=== PATIENT | female | born 1985 | race African-American/Black ===

== ENCOUNTER 2016-06-30 03:26 | Emergency (ER) | payer MEDICAID ==
[~2016-06-30 03:26] MED LIST: CEPH500 PO; PREN0.01 PO
--- NOTE | 2016-06-30 04:29 | PD ---
HPI Chief Complaint Fluid per vagina Date Seen: Jun 30, 2016 Time Seen: 04:24 Travel History International Travel<30 Days: No Contact w/Intl Traveler<30Days: No Known Affected Area: No History of Present Illness HPI Patient is a 31-year-old female who is at 18 weeks 5 days by last menstrual cycle. She sees Radhika De Luna for care and is following up with her again on the sixth. No vaginal bleeding abdominal or pelvic pain. Patient states she had some fluid come out of what she thinks is the vaginal area although she cannot rule out urine earlier tonight 1. Para: 4 : 7 Last Menstrual Period: Jun 30, 2016 (February 19, 2070) History Past Medical History Medical History: Denies Significant Hx Obstetric History Obstetric History Spontaneous vaginal delivery 4 Past Surgical History Surgical History: No Previous Surgery Family History Family History: Negative Social History Alcohol Use: No Tobacco Use: Yes Substance Abuse: No Allergies-Medications (Allergen,Severity, Reaction): Coded Allergies: No Known Allergies (Verified , 11/20/15) Home Meds Active Scripts Multivit/Min/Fol Ac/Iron/Pren ( Vit ( Plus)) Tab1 Tab PO DAILY #30 TAB Prov:Johanne Moy MD 11/20/15 Cephalexin Monohydrate (Keflex 500 mg Cap)500 Mg [id number] Mg PO TID 7 Days Prov:Johanne Moy MD 11/20/15 Review of Systems Except as stated in HPI: all other systems reviewed are Neg Physical Exam Narrative GENERAL: Well-nourished, well-developed patient. SKIN: Warm and dry. HEAD: Normocephalic and atraumatic. EYES: No scleral icterus. No injection or drainage. ENT: No nasal drainage noted. Mucous membranes pink. Airway patent. NECK: Supple, trachea midline. No JVD. CARDIOVASCULAR: Regular rate and rhythm without murmurs, gallops, or rubs. RESPIRATORY: Breath sounds equal bilaterally. No accessory muscle use. BREASTS: Bilateral exam showed no masses , no retractions, no nipple discharge. ABDOMEN/GI: Abdomen soft, non-tender, bowel sounds present, no rebound, no guarding Gravid to [-18] weeks size Fundal Height: [-] GENITOURINARY: External Genitalia: intact and normal in appearance BUS glands: [-Normal] no fluid noted no gross rupture Cervix: [-] Dilatation: [-] Effacement: [-] Station: [-] Presentation: [-] Membranes: Intact, amnisure negative Uterine Contractions: [Absent-] FHT's: Category: [-] heart rate 152 by Doppler Baseline: [-] Reactive: [-] Variability: [-] Decels: [-] EXTREMITIES: No cyanosis or edema. BACK: Nontender without obvious deformity. No CVA tenderness. NEUROLOGICAL: Awake and alert. Motor and sensory grossly within normal limits. Five out of 5 muscle strength in all muscle groups. Normal speech. Data Data Vital Signs Reviewed: Yes MDM Plan Intact amniotic membranes with negative amnisure and no gross rupture of membrane rupture on examination Follow up with Radhika De Luna as scheduled on the sixth Diagnosis Diagnosis: Primary Impression: Intact amniotic membranes during in second trimester Additional Impression: 18 weeks gestation of Disposition: 01 DISCHARGE HOME Mely Landeros MD Jun 30, 2016 04:29
== END 2016-06-30 07:00 | disposition home or self-care (01) ==
LOC: HOBED 03:26
DX: O26.892 Other specified pregnancy related conditions, second trimester (principal)
CPT/HCPCS: 84112; 99284

== ENCOUNTER 2016-09-18 18:17 | Emergency (ER) | payer MEDICAID ==
[~2016-09-18] VITALS: Ht 157.5 cm; Wt 89.0 kg
[2016-09-18 18:18] VITALS: BP 125/76; PULSE 102; RESP 16; TEMP 99; O2SAT 100
== END 2016-09-18 21:50 | disposition left against medical advice (07) ==
LOC: NED 18:17
DX: R09.89 Other specified symptoms and signs involving the circulatory and respiratory systems (principal)
CPT/HCPCS: 99281

== ENCOUNTER 2016-10-06 03:50 | Emergency (ER) | payer MEDICAID ==
[2016-10-06 05:05] LABS: BACTERIA, URINE RARE /hpf; BLOOD, URINE NEG (NEG); COMMENT (UR) CULT NOT INDICATED; CULTURE IF INDICATED CULT NOT INDICATED; GLUCOSE,URINE NEG (NEG); KETONE, URINE NEG (NEG); MUCUS URINE FEW /lpf (OCC); NITRITE,URINE NEG (NEG); SQUAMOUS EPITHELIAL CELL URINE 10 /hpf (0-5); URINE COLOR YELLOW (YELLW/STRAW)
--- NOTE | 2016-10-06 06:11 | PD ---
HPI Chief Complaint Urinary frequency some dysuria and pelvic pressure Date Seen: Oct 06, 2016 Travel History International Travel<30 Days: No Contact w/Intl Traveler<30Days: No Known Affected Area: No History of Present Illness HPI 31-year-old black female now at 32 weeks presents combining of urinary discharge frequency some discomfort with urination ,pelvic pressure. Denies bleeding or leakage of fluid per vagina, heart rate tracing is reactive and there are no contractions seen Para: 4 : 8 History Obstetric History Obstetric History 4 vaginal deliveries 3 early losses Social History Alcohol Use: No Tobacco Use: No Substance Abuse: No Allergies-Medications (Allergen,Severity, Reaction): Coded Allergies: No Known Allergies (Verified , 11/20/15) Home Meds Active Scripts Multivit/Min/Fol Ac/Iron/Pren ( Vit ( Plus)) Tab1 Tab PO DAILY #30 TAB Prov:Johanne Moy MD 11/20/15 Cephalexin Monohydrate (Keflex 500 mg Cap)500 Mg [id number] Mg PO TID 7 Days Prov:Johanne Moy MD 11/20/15 Review of Systems General / Constitutional: No: Fever, Weight Gain, Chills, Other Eyes: No: Diploplia, Blurred Vision, Visual changes, Pain, Photophobia HENT: No: Headaches, Vertigo, Lightheadedness Cardiovascular: No: Irregular Rhythm, Chest Pain or Discomfort, Palpitations, Tachycardia, Syncope, Varicosities, Edema, Cyanosis Respiratory: No: Cough, Short of Breath, Other Gastrointestinal: No: Nausea, Vomiting, Diarrhea Genitourinary: Urgency, Frequency, Pelvic Pain, No: Decreased Urinary Output, Oliguria Musculoskeletal: No: Limited ROM, Weakness, Cramping, Edema, Pain Skin: No Rash, No Itching, No Dryness, No Lumps, No Change in Pigmentation, No Change in Nails, No Alopecia, No Lesions Neurologic: No: Weakness, Dizziness, Syncope, Focal Abnormalities, Coordination Problem, Headache, Slurred Speech, Seizures Psychiatric: No: Depression, Suicidal Ideations, Homicidal Ideation Endocrine: No: Heat Intolerance, Cold Intolerance, Polydipsia, Polyuria, Other Physical Exam Narrative GENERAL: Well-nourished, well-developed patient. SKIN: Warm and dry. HEAD: Normocephalic and atraumatic. EYES: No scleral icterus. No injection or drainage. ENT: No nasal drainage noted. Mucous membranes pink. Airway patent. NECK: Supple, trachea midline. No JVD. CARDIOVASCULAR: Regular rate and rhythm without murmurs, gallops, or rubs. RESPIRATORY: Breath sounds equal bilaterally. No accessory muscle use. BREASTS: Bilateral exam showed no masses , no retractions, no nipple discharge. ABDOMEN/GI: Abdomen soft, non-tender, bowel sounds present, no rebound, no guarding Gravid to [-33] weeks size Fundal Height: [-33] GENITOURINARY: External Genitalia: intact and normal in appearance BUS glands: [-] Cervix: [-] Dilatation: [0-] Effacement: [-0] Station: [-3] Presentation: [vtx-] Membranes: [intact ] Uterine Contractions: [none-] FHT's: Category: [1-] Baseline: [-144] Reactive: [-yes] Variability: [mod-] Decels: [0-] EXTREMITIES: No cyanosis or edema. BACK: Nontender without obvious deformity. No CVA tenderness. NEUROLOGICAL: Awake and alert. Motor and sensory grossly within normal limits. Five out of 5 muscle strength in all muscle groups. Normal speech. Data Data Orders Urinalysis - C+S If Indicated (10/06/16 03:57) Labs Laboratory Tests Test 10/06/16 04:08 Urine Color YELLOW Urine Turbidity HAZY Urine pH 7.0 Urine Specific [place] 1.026 Urine Protein 30 Urine Glucose (UA) NEG Urine Ketones NEG Urine Occult Blood NEG Urine Nitrite NEG Urine Bilirubin NEG Urine Urobilinogen 8.0 Urine Leukocyte Esterase SMALL Urine RBC 1 Urine WBC 3 Urine Squamous Epithelial 10 Cells Urine Amorphous Sediment SMALL Urine Bacteria RARE Urine Mucus FEW Microscopic Urinalysis Comment CULT NOT INDICATED MDM Interpretation(s) This patient is a 31-year-old black female 32 weeks complaining of urinary frequency pelvic pressure, no vaginal bleeding or leakage of fluid. heart rate tracing is reactive and she is not rach. Cervix is closed long and high. Urinalysis is negative for infection Plan Plan for the patient to orally hydrate herself at home and flushed the bladder, she can take Tylenol as needed. Heating pad on her lower abdomen or hot bath. Bedrest may help some of pressure off she's feeling. Diagnosis Diagnosis: Primary Impression: Feeling pelvic pressure in in third trimester, antepartum Disposition: 01 DISCHARGE HOME Condition: Stable Patient Instructions: General Instructions, Early Labor Signs (ED), Movement (ED), Urinary Tract Infection in (ED) Departure Forms: Tests/Procedures Cade Thomas II, MD Oct 06, 2016 06:11
== END 2016-10-06 06:26 | disposition home or self-care (01) ==
LOC: HOBED 03:50
DX: O26.93 Pregnancy related conditions, unspecified, third trimester (principal); R10.2 Pelvic and perineal pain; Z3A.32 32 weeks gestation of pregnancy
CPT/HCPCS: 81001; 99282

== ENCOUNTER 2016-11-05 19:48 | Inpatient (IN) | payer MEDICAID ==
[2016-11-05 21:33] LABS: AUTOMATED NEUTROPHIL # 5.6 TH/MM3 (1.8-7.7); BASOPHIL % 0.3 % (0.0-2.0); EOSINOPHIL % 0.3 % (0.0-4.0); HEMATOCRIT 29.3 % (35.0-46.0); HEMO FLAGS DIFF FINAL; LYMPH % 24.4 % (9.0-44.0); LYMPHOCYTE # 1.9 TH/MM3 (1.0-4.8); MEAN CELL VOLUME 85.1 FL (80.0-100.0); MEAN CORPUSCULAR HEMOGLOBIN 27.7 PG (27.0-34.0); MEAN CORPUSCULAR HGB CONC 32.6 % (32.0-36.0); MONO % 4.2 % (0.0-8.0); NEUT % 70.8 % (16.0-70.0); PLATELET COUNT 233 TH/MM3 (150-450); RED BLOOD COUNT 3.45 MIL/MM3 (4.00-5.30); RED CELL DISTRIBUTION WIDTH 14.1 % (11.6-17.2); WHITE BLOOD COUNT 7.9 TH/MM3 (4.0-11.0)
[2016-11-05 21:36] LABS: BACTERIA, URINE RARE /hpf; BLOOD, URINE NEG (NEG); COMMENT (UR) CULT NOT INDICATED; CULTURE IF INDICATED CULT NOT INDICATED; GLUCOSE,URINE NEG (NEG); KETONE, URINE NEG (NEG); MUCUS URINE FEW /lpf (OCC); NITRITE,URINE NEG (NEG); SQUAMOUS EPITHELIAL CELL URINE 4 /hpf (0-5); URINE COLOR YELLOW (YELLW/STRAW)
[2016-11-05 22:00] LABS: ALKALINE PHOSPHATASE 160 U/L (45-117); ALT (GPT) 15 U/L (10-53); ANION GAP 11 MEQ/L (5-15); AST (GOT) 23 U/L (15-37); BICARBONATE 24.7 MEQ/L (21.0-32.0); BLOOD UREA NITROGEN 6 MG/DL (7-18); CHLORIDE 102 MEQ/L (98-107); GLOMERULAR FILTRATION RATE 106 ML/MIN (>89); SODIUM (NA) 138 MEQ/L (136-145); TOTAL BILIRUBIN ADULT 0.7 MG/DL (0.2-1.0); URIC ACID 7.1 MG/DL (2.6-6.0)
--- NOTE | 2016-11-05 22:15 | HHI.HP ---
HPI Chief Complaint This patient complains of high blood pressure Date Seen: Nov 05, 2016 Travel History International Travel<30 Days: No Contact w/Intl Traveler<30Days: No Known Affected Area: No History of Present Illness HPI Patient is 31-year-old black female A3 who 37 weeks gestation the patient Radhika Salazar presents from her office for evaluation of hypertension. 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 heart rate tracing is reactive she's not rach on a regular basis she denies leakage of fluid or bleeding or pain. She does complain of a headache at times, no visual changes Para: 4 : 8 History Obstetric History Obstetric History 4 vaginal deliveries 3 early losses Social History Alcohol Use: No Tobacco Use: No Substance Abuse: No Allergies-Medications (Allergen,Severity, Reaction): Coded Allergies: No Known Allergies (Verified , 11/20/15) Home Meds Active Scripts Multivit/Min/Fol Ac/Iron/Pren ( Vit ( Plus)) Tab1 Tab PO DAILY #30 TAB Prov:Johanne Moy MD 11/20/15 Cephalexin Monohydrate (Keflex 500 mg Cap)500 Mg [id number] Mg PO TID 7 Days Prov:Johanne Moy MD 11/20/15 Review of Systems General / Constitutional: No: Fever, Weight Gain, Chills, Other Eyes: No: Diploplia, Blurred Vision, Visual changes, Pain, Photophobia HENT: Headaches, No: Vertigo, Lightheadedness Cardiovascular: No: Irregular Rhythm, Chest Pain or Discomfort, Palpitations, Tachycardia, Syncope, Varicosities, Edema, Cyanosis Respiratory: No: Cough, Short of Breath, Other Gastrointestinal: No: Nausea, Vomiting, Diarrhea Genitourinary: No: Decreased Urinary Output, Oliguria Musculoskeletal: No: Limited ROM, Weakness, Cramping, Edema, Pain Skin: No Rash, No Itching, No Dryness, No Lumps, No Change in Pigmentation, No Change in Nails, No Alopecia, No Lesions Neurologic: No: Weakness, Dizziness, Syncope, Focal Abnormalities, Coordination Problem, Headache, Slurred Speech, Seizures Psychiatric: No: Depression, Suicidal Ideations, Homicidal Ideation Endocrine: No: Heat Intolerance, Cold Intolerance, Polydipsia, Polyuria, Other Physical Exam Narrative GENERAL: Well-nourished, well-developed patient. SKIN: Warm and dry. HEAD: Normocephalic and atraumatic. EYES: No scleral icterus. No injection or drainage. ENT: No nasal drainage noted. Mucous membranes pink. Airway patent. NECK: Supple, trachea midline. No JVD. CARDIOVASCULAR: Regular rate and rhythm without murmurs, gallops, or rubs. RESPIRATORY: Breath sounds equal bilaterally. No accessory muscle use. BREASTS: Bilateral exam showed no masses , no retractions, no nipple discharge. ABDOMEN/GI: Abdomen soft, non-tender, bowel sounds present, no rebound, no guarding Gravid to [36-] weeks size Fundal Height: [-36] GENITOURINARY: External Genitalia: intact and normal in appearance BUS glands: [-] Cervix: [-] Dilatation: [1-] Effacement: [50-] Station: [-3] very high Presentation: [-vtx] Membranes: [intact ] Uterine Contractions: [Occasional-] FHT's: Category: [-1] Baseline: [-133] Reactive: [yes-] Variability: [-mod] Decels: [0-] EXTREMITIES: No cyanosis or edema. BACK: Nontender without obvious deformity. No CVA tenderness. NEUROLOGICAL: Awake and alert. Motor and sensory grossly within normal limits. Five out of 5 muscle strength in all muscle groups. Normal speech. Data Data Orders Complete Blood Count With Diff (11/05/16 20:35) Comprehensive Metabolic Panel (11/05/16 20:35) Uric Acid (11/05/16 20:35) Urinalysis - C+S If Indicated (11/05/16 20:43) Labs Laboratory Tests Test 11/05/16 11/05/16 20:15 20:50 Urine Color YELLOW Urine Turbidity CLEAR Urine pH 6.0 Urine Specific [place] 1.026 Urine Protein 30 Urine Glucose (UA) NEG Urine Ketones NEG Urine Occult Blood NEG Urine Nitrite NEG Urine Bilirubin NEG Urine Urobilinogen 4.0 Urine Leukocyte Esterase NEG Urine RBC LESS THAN 1 Urine WBC 2 Urine Squamous Epithelial 4 Cells Urine Bacteria RARE Urine Mucus FEW Microscopic Urinalysis Comment CULT NOT INDICATED White Blood Count 7.9 Red Blood Count 3.45 Hemoglobin 9.6 Hematocrit 29.3 Mean Corpuscular Volume 85.1 Mean Corpuscular Hemoglobin 27.7 Mean Corpuscular Hemoglobin 32.6 Concent Red Cell Distribution Width 14.1 Platelet Count 233 Mean Platelet Volume 9.0 Neutrophils (%) (Auto) 70.8 Lymphocytes (%) (Auto) 24.4 Monocytes (%) (Auto) 4.2 Eosinophils (%) (Auto) 0.3 Basophils (%) (Auto) 0.3 Neutrophils # (Auto) 5.6 Lymphocytes # (Auto) 1.9 Monocytes # (Auto) 0.3 Eosinophils # (Auto) 0.0 Basophils # (Auto) 0.0 CBC Comment DIFF FINAL Differential Comment Assessment/Plan Assessment and Plan This patient is a 37 week intrauterine with elevated blood pressures 140 over 90s and 1+ proteinuria, heart rate tracing is reactive and she is rach minimally. Cervix is 1 cm 50% very posterior and high vertex presentation. The hypertensive lab normal so far Plan to admit the hospital was for observation and 24-hour urine protein, bedrest. Her blood pressures continue to be elevated after bedrest consider labor induction Cade Thomas II, MD Nov 05, 2016 22:15
[2016-11-05] MEDS ORDERED: LACTATED RINGER'S 1000 ML INJ 1,000 ML IV SCH (22:17)
[2016-11-05 22:21] LABS: POTASSIUM 2.9 MEQ/L (3.5-5.1)
[2016-11-05] MEDS ORDERED: POTASSIUM PHOSPHATE INJ 30 MMOL in SODIUM CHLOR 0.9% 250 ML INJ 250 ML IV ONE (22:30)
[2016-11-05] MEDS ORDERED: ZOLPIDEM TARTRATE 5 MG TAB PO PRN (22:30)
[2016-11-05] MEDS ORDERED: SODIUM CHLORIDE 0.9% FLUSH 5 ML FLUSH IV PRN (22:30)
[2016-11-05] MEDS ORDERED: DOCUSATE SODIUM 100 MG CAP PO PRN (22:30)
[2016-11-05] MEDS ORDERED: CALCIUM GLUCONATE 10% 1 GM/10 ML VIAL IV PUSH PRN (22:30)
[2016-11-05] MEDS ORDERED: ONDANSETRON HCL 4 MG/2 ML VIAL IV PRN (22:30)
[2016-11-05] MEDS ORDERED: hydrALAZINE HCL 20 MG/ML VIAL IV PUSH PRN (22:30)
[2016-11-05] MEDS ORDERED: POTASSIUM CHLOR 20 MEQ PREMIX 100 ML IV ONE (23:00)
[2016-11-06] VITALS (108 sets, daily range): BP systolic 120–159; BP diastolic 73–103; PULSE 58–92; RESP 18; TEMP 97.8–98.2; O2SAT 98–100
[2016-11-06] MEDS ORDERED: SODIUM CHLORIDE 0.9% FLUSH 5 ML FLUSH IV SCH ×2 (09:00→21:00)
--- NOTE | 2016-11-06 11:05 | HHI.PR ---
BREAKER TENDER Note Note Discussed continued elevation in blood pressure with this patient. BP are consistently 140-150/90-100 with proteinuria on dip. At 37 weeks I have recommended induction of labor due to Gestational Hypertension with proteinuria , no severe features are noted. Patient states that she had a GBS performed but it was only a swab of the area "between the vagina and rectum" no entry to the vagina or rectum was done, this was GBS negative. Patient has had positive GBS cultures in 3 prior pregnancies. 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 Patient will be transferred to labor for cervical ripening and induction of labor. Mely Landeros MD Nov 06, 2016 11:05
[2016-11-06] MEDS ORDERED: LACTATED RINGER'S 1000 ML INJ 1,000 ML IV PRN (11:11)
[2016-11-06] MEDS ORDERED: LACTATED RINGER'S 1000 ML INJ 1,000 ML IV SCH (11:11)
[2016-11-06] MEDS ORDERED: SODIUM CHLORIDE 0.9% FLUSH 5 ML FLUSH IV PRN (11:15)
[2016-11-06] MEDS ORDERED: LIDOCAINE HCL 1% 50 ML VIAL INFIL PRN (11:15)
[2016-11-06] MEDS ORDERED: LIDOCAINE HCL 1% 50 ML VIAL I-DERMAL PRN (11:15)
[2016-11-06] MEDS ORDERED: CITRIC ACID-SODIUM CITRATE LIQ 30 ML UDC PO SCH (11:15)
[2016-11-06] MEDS ORDERED: MINERAL OIL 10 ML VIAL TOPICAL PRN (11:15)
[2016-11-06] MEDS ORDERED: CALCIUM GLUCONATE 10% 1 GM/10 ML VIAL IV PUSH PRN (11:15)
[2016-11-06] MEDS ORDERED: OXYTOCIN 30 UNITS-500ML PREMIX 500 ML IV ONE (11:15)
[2016-11-06] MEDS ORDERED: PENICILLIN G POTASSIUM INJ 5,000,000 UNITS in SODIUM CHLORIDE 0.9% INJ 100 ML IV ONE (11:15)
[2016-11-06] MEDS ORDERED: MAGNESIUM SULFATE 4 GM PREMIX 100 ML IV ONE (11:15)
[2016-11-06] MEDS ORDERED: SODIUM CHLORID 0.9% 500 ML INJ 500 ML IV PRN (11:15)
--- NOTE | 2016-11-06 11:23 | PD.OB.ANTE ---
Subjective Interval History Patient seen and examined this morning. Denies any new complaints. Is having some lower pelvic pain. Denies any headaches, RUQ pain, changes in vision, lower extremity swelling. Denies any chest pain, SOB, calf pain. Antepartum ROS: Reports: movement normal, Denies: New complaints, Loss of fluid, Vaginal bleeding, Contractions, Other Objective Lab & Micro Results Test 11/05/16 11/05/16 20:15 20:50 Urine Color YELLOW Urine Turbidity CLEAR Urine pH 6.0 Urine Specific [place] 1.026 Urine Protein 30 mg/dL Urine Glucose (UA) NEG mg/dL Urine Ketones NEG mg/dL Urine Occult Blood NEG Urine Nitrite NEG Urine Bilirubin NEG Urine Urobilinogen 4.0 MG/DL Urine Leukocyte Esterase NEG Urine RBC LESS THAN 1 /hpf Urine WBC 2 /hpf Urine Squamous Epithelial 4 /hpf Cells Urine Bacteria RARE /hpf Urine Mucus FEW /lpf Microscopic Urinalysis Comment CULT NOT INDICATED White Blood Count 7.9 TH/MM3 Red Blood Count 3.45 MIL/MM3 Hemoglobin 9.6 GM/DL Hematocrit 29.3 % Mean Corpuscular Volume 85.1 FL Mean Corpuscular Hemoglobin 27.7 PG Mean Corpuscular Hemoglobin 32.6 % Concent Red Cell Distribution Width 14.1 % Platelet Count 233 TH/MM3 Mean Platelet Volume 9.0 FL Neutrophils (%) (Auto) 70.8 % Lymphocytes (%) (Auto) 24.4 % Monocytes (%) (Auto) 4.2 % Eosinophils (%) (Auto) 0.3 % Basophils (%) (Auto) 0.3 % Neutrophils # (Auto) 5.6 TH/MM3 Lymphocytes # (Auto) 1.9 TH/MM3 Monocytes # (Auto) 0.3 TH/MM3 Eosinophils # (Auto) 0.0 TH/MM3 Basophils # (Auto) 0.0 TH/MM3 CBC Comment DIFF FINAL Differential Comment Sodium Level 138 MEQ/L Potassium Level 2.9 MEQ/L Chloride Level 102 MEQ/L Carbon Dioxide Level 24.7 MEQ/L Anion Gap 11 MEQ/L Blood Urea Nitrogen 6 MG/DL Creatinine 0.76 MG/DL Estimat Glomerular Filtration 106 ML/MIN Rate Random Glucose 94 MG/DL Uric Acid 7.1 MG/DL Calcium Level 9.0 MG/DL Total Bilirubin 0.7 MG/DL Aspartate Amino Transf 23 U/L (AST/SGOT) Alanine Aminotransferase 15 U/L (ALT/SGPT) Alkaline Phosphatase 160 U/L Total Protein 6.7 GM/DL Albumin 2.7 GM/DL Physical Exam GENERAL: Well-nourished, well-developed patient. CARDIOVASCULAR: Regular rate and rhythm without murmurs, gallops, or rubs. RESPIRATORY: Breath sounds equal bilaterally. No accessory muscle use. ABDOMEN/GI: Abdomen soft, non-tender. Gravid to 37 weeks. GENITOURINARY: FHT's: Category: 1 Baseline: 130 Reactive: yes Variability: moderate Decels: none EXTREMITIES: No cyanosis or edema, non-tender, without signs of DVT. Assessment and Plan Problem List: (1) 37 weeks gestation of Status: Acute (2) Elevated blood pressure affecting in third trimester, antepartum Status: Acute Assessment and Plan This patient is a 37 week intrauterine with elevated blood pressures 140 over 90s and 1+ proteinuria, heart rate tracing is reactive and she is rach minimally. Elevated BP up to 162/95 overnight. GBS negative (inadequately sampled) -BPs continued to be elevated, will induce labor and cervical ripening with cytotec. -Admit to L&D -24 hour urine pending -Continuous FHT -GBS treatment with Salvador Degroot MD R1 Nov 06, 2016 11:23
[2016-11-06] MEDS ORDERED: SODIUM CHLOR 0.9% 1000 ML INJ 1,000 ML IV PRN (11:31)
[2016-11-06] MEDS: MAGNESIUM SULFATE 40 GM PREMIX 1,000 ML IV SCH (12:16)
[2016-11-06] MEDS ORDERED: MISOPROSTOL 25 MCG SUPP VAGINAL ONE (13:30)
[2016-11-06 13:40] LABS: AUTOMATED NEUTROPHIL # 3.9 TH/MM3 (1.8-7.7); BASOPHIL % 0.3 % (0.0-2.0); EOSINOPHIL % 0.3 % (0.0-4.0); HEMATOCRIT 27.3 % (35.0-46.0); HEMO FLAGS DIFF FINAL; LYMPH % 29.2 % (9.0-44.0); LYMPHOCYTE # 1.8 TH/MM3 (1.0-4.8); MEAN CELL VOLUME 85.6 FL (80.0-100.0); MEAN CORPUSCULAR HEMOGLOBIN 28.4 PG (27.0-34.0); MEAN CORPUSCULAR HGB CONC 33.2 % (32.0-36.0); MONO % 6.1 % (0.0-8.0); NEUT % 64.1 % (16.0-70.0); PLATELET COUNT 241 TH/MM3 (150-450); RED BLOOD COUNT 3.19 MIL/MM3 (4.00-5.30); RED CELL DISTRIBUTION WIDTH 14.2 % (11.6-17.2); WHITE BLOOD COUNT 6.1 TH/MM3 (4.0-11.0)
[2016-11-06] MEDS ORDERED: LABETALOL HCL 100 MG/20 ML VIAL ONE (13:54)
[2016-11-06] MEDS: PENICILLIN G POTASSIUM INJ 2,500,000 UNITS in SODIUM CHLORIDE 0.9% INJ 100 ML IV SCH ×3 (15:00→23:00)
[2016-11-06] MEDS: LACTATED RINGER'S 1000 ML INJ 1,000 ML IV SCH (17:03)
[2016-11-06] MEDS: MISOPROSTOL 25 MCG SUPP VAGINAL PRN ×2 (17:31→21:46)
[2016-11-07] VITALS (154 sets, daily range): BP systolic 120–163; BP diastolic 62–109; PULSE 66–116; RESP 16–18; TEMP 97.4–98.3
[2016-11-07] MEDS: ACETAMINOPHEN 325 MG TAB PO PRN ×2 (00:45→10:11)
[2016-11-07] MEDS: LACTATED RINGER'S 1000 ML INJ 1,000 ML IV SCH ×2 (00:46→06:23)
[2016-11-07] MEDS ORDERED: OXYTOCIN 30 UNITS/NS 500ML PREMIX IV SCH (02:30)
[2016-11-07] MEDS: PENICILLIN G POTASSIUM INJ 2,500,000 UNITS in SODIUM CHLORIDE 0.9% INJ 100 ML IV SCH ×3 (04:24→14:22)
[2016-11-07] MEDS: MAGNESIUM SULFATE 40 GM PREMIX 1,000 ML IV SCH (06:25)
[2016-11-07 10:30] LABS: RAPID PLASMA REAGIN SCREEN NON-REACTIVE (NON-REACTVE)
[2016-11-07] MEDS ORDERED: fentaNYL 2MCG-BUPIV 0.125% INJ 100 ML ONE (10:54)
[2016-11-07] MEDS ORDERED: ePHEDrine/NS 25 MG/5 ML SYR ONE (10:54)
[2016-11-07] MEDS ORDERED: BUPIVACAINE HCL PF 0.25% 10 ML VIAL ONE (11:12)
--- NOTE | 2016-11-07 11:14 | PD.LABORPN ---
Subjective Subjective 31-year-old A3 at 37/2 weeks gestation admitted for induction of labor due to preeclampsia. She denies headaches, changes in vision. She has no physical concerns at this time. Objective Vital Signs Vital Signs Date Time Temp Pulse Resp B/P Pulse Ox O2 Delivery O2 Flow Rate FiO2 11/07/16 11:05 97.6 11/07/16 11:01 18 11/07/16 11:00 81 11/07/16 11:00 84 148/89 11/07/16 10:25 73 11/07/16 10:20 82 11/07/16 10:15 86 11/07/16 10:15 18 11/07/16 10:10 77 11/07/16 10:05 74 11/07/16 10:00 76 141/84 11/07/16 10:00 74 11/07/16 09:55 73 11/07/16 09:50 74 11/07/16 09:45 76 11/07/16 09:11 18 11/07/16 09:10 77 11/07/16 09:05 82 11/07/16 09:01 83 128/86 11/07/16 09:00 73 11/07/16 08:05 80 11/07/16 08:01 81 18 143/97 11/07/16 08:00 74 11/07/16 07:55 74 11/07/16 07:50 74 11/07/16 07:45 74 11/07/16 07:07 75 153/96 11/07/16 07:05 74 11/07/16 07:02 76 11/07/16 07:01 79 11/07/16 07:00 77 11/07/16 06:59 18 11/07/16 06:59 97.8 11/07/16 06:55 73 11/07/16 06:50 77 11/07/16 06:45 83 11/07/16 06:40 75 11/07/16 06:35 75 11/07/16 06:30 76 11/07/16 06:25 75 11/07/16 06:20 73 11/07/16 06:15 73 11/07/16 06:10 76 11/07/16 06:05 76 11/07/16 06:00 73 11/07/16 06:00 151/97 11/07/16 06:00 78 11/07/16 06:00 18 11/07/16 05:55 83 11/07/16 05:50 79 11/07/16 05:40 78 11/07/16 05:35 80 11/07/16 05:20 76 11/07/16 05:10 74 11/07/16 05:00 76 153/93 11/07/16 04:59 97.7 11/07/16 04:55 73 11/07/16 04:54 18 11/07/16 04:50 73 11/07/16 04:45 74 11/07/16 04:35 78 11/07/16 04:25 77 11/07/16 04:10 66 11/07/16 04:04 77 11/07/16 04:01 153/96 11/07/16 03:55 68 11/07/16 03:53 18 11/07/16 03:50 69 11/07/16 03:25 78 Objective Pelvic Exam: Cervix: midposition Dilatation: 3 cm Effacement: 80 Station: -2 Presentation: vertex Membranes: AROM by Dr. Krishnamurthy @[id number] Uterine Contractions: Regular every 2-3 mins FHT's: Category: 1 Baseline: 120 Reactive: Y Variability: moderate Decels: N Assessment/Plan Problem List: (1) 37 weeks gestation of (2) Elevated blood pressure affecting in third trimester, antepartum Assessment and Plan 31-year-old A3 at 37/2 weeks gestation admitted for induction of labor #1 IUP Category 1 tracing, reassuring - Continuous monitoring #2 preeclampsia Blood pressures less than 150/90 - Vital signs per protocol - Receiving magnesium sulfate - Status post Cytotec 2 for cervical ripening - Currently on Pitocin with regular contractions - Status post AROM, IUPC placement for monitoring Efrain Krishnamurthy MD R1 Nov 07, 2016 11:14
--- NOTE | 2016-11-07 15:13 | PD.OB.DELI ---
Delivery Date: Nov 07, 2016 Anesthesia: Epidural Episiotomy: None Vaginal Delivery: Normal Presentation: Occiput anterior Nuchal Cord: x1 Delayed cord clamping (45 sec): Yes : Female One Minute : 8 Five Minute : 9 Weight: 2275 g Placenta: Spontaneous delivery Laceration: No lacerations Additional Information Delivered by Dr. Krishnamurthy Supervised by Dr. Ivory (Efrain Krishnamurthy MD R1) Attestation I was present and directly supervised the entire delivery procedure. During placenta delivery, cord was thin and small and avulsed with minimal traction. Placenta began to delivery spontaneously with fundal massage. Speculum was placed in vagina for visualization and cervix manipulated with ring forceps. Edge of placenta could be visualized coming through os. Instruments were removed from the vagina and edge of placenta was grasped manually within cervical canal, and placenta was teased out intact. The placenta appeared small for gestational age. /delivery complicated by preeclampsia/SGA. (Yuval Ivory MD) Efrain Krishnamurthy MD R1 Nov 07, 2016 15:13 Yuval Ivory MD Nov 07, 2016 15:21
[2016-11-07] MEDS ORDERED: WITCH HAZEL 50%/GLYCERIN 12.5% 40 PAD JAR TOPICAL PRN (15:30)
[2016-11-07] MEDS ORDERED: ACETAMINOPHEN 325 MG TAB PO PRN (15:30)
[2016-11-07] MEDS ORDERED: ZOLPIDEM TARTRATE 5 MG TAB PO PRN (15:30)
[2016-11-07] MEDS ORDERED: ALUMINUM/MAGNESIUM/SIMETH 30 ML CUP PO PRN (15:30)
[2016-11-07] MEDS ORDERED: IBUPROFEN 600 MG TAB PO PRN (15:30)
[2016-11-07] MEDS ORDERED: DOCUSATE SODIUM 50 MG/SENNA 8.6 MG TAB PO PRN (15:30)
[2016-11-07] MEDS ORDERED: BENZOCAINE 20% TOPICAL SPRAY 60 ML CAN TOPICAL PRN (15:30)
[2016-11-07] MEDS ORDERED: SODIUM CHLORIDE 0.9% FLUSH 10 ML FLUSH IV FLUSH PRN (15:30)
[2016-11-07] MEDS ORDERED: ONDANSETRON ODT 4 MG TAB PO PRN (15:30)
[2016-11-07] MEDS ORDERED: DIPHTH/TETANUS/ACEL PERTUSSIS (BOOSTER) 0.5 ML VIAL/PFS IM ONE (16:00)
[2016-11-07] MEDS ORDERED: MEASLES, MUMPS, RUBELLA VACCINE 0.5 ML VIAL SQ ONE (16:00)
[2016-11-07] MEDS ORDERED: DO NOT ADMINISTER ANTICOAGULANTS PRN (16:30)
[2016-11-07] MEDS ORDERED: fentaNYL 2MCG-BUPIV 0.125% 100 ML EPIDURAL SCH (16:30)
[2016-11-07] MEDS ORDERED: OXYTOCIN 30 UNITS-500ML PREMIX 500 ML ONE (16:30)
[2016-11-07] MEDS ORDERED: ePHEDrine/NS 25 MG/5 ML SYR IV PRN (16:30)
[2016-11-07] MEDS ORDERED: MISOPROSTOL 200 MCG TAB ONE (16:30)
[2016-11-07] MEDS ORDERED: NO SYSTEM NARCOTICS PRN (16:30)
[2016-11-07] MEDS ORDERED: MISOPROSTOL 200 MCG TAB RECTAL ONE (16:45)
[2016-11-07] MEDS ORDERED: OXYTOCIN 30 UNITS-500ML PREMIX 500 ML IV SCH (16:45)
--- NOTE | 2016-11-07 17:05 | HHI.OB ---
Subjective Post Operative Day: 0 Remarks Called to see patient secondary to excessive vaginal bleeding approx 400 cc clot noted on perineal pad and active bleeding noted. Pt alert and oriented, no c/o dizziness/weakness. On exam, uterus firm. Approximately 600 cc of additional clot expelled with BME. Second bag of pitocin hung. misoprostol 800 mcg placed in rectum. Minimal vaginal bleeding noted after exam/intervention complete. Will observe closely and check hgb in 1 hour. Objective Vitals/I&O Vital Signs Date Time Temp Pulse Resp B/P Pulse Ox O2 Delivery O2 Flow Rate FiO2 11/07/16 16:45 92 144/96 11/07/16 16:44 18 11/07/16 16:31 116 163/62 11/07/16 16:21 18 11/07/16 16:15 83 156/102 11/07/16 16:03 80 151/93 11/07/16 15:55 18 11/07/16 15:49 85 157/99 11/07/16 15:39 18 11/07/16 15:31 95 149/91 11/07/16 15:21 96 144/87 11/07/16 15:19 97.6 11/07/16 15:17 18 11/07/16 15:01 87 144/91 11/07/16 14:54 88 136/94 11/07/16 14:30 103 155/109 11/07/16 14:10 18 11/07/16 14:00 75 135/90 11/07/16 13:30 72 125/73 11/07/16 13:22 97.4 18 11/07/16 13:00 71 125/79 11/07/16 12:36 83 133/77 11/07/16 12:35 77 11/07/16 12:31 83 132/78 11/07/16 12:30 77 11/07/16 12:28 79 134/87 11/07/16 12:25 87 127/71 11/07/16 12:25 79 11/07/16 12:20 88 129/83 11/07/16 12:20 97 11/07/16 12:15 95 11/07/16 12:15 90 135/87 11/07/16 12:11 18 11/07/16 12:10 93 134/97 11/07/16 12:10 92 11/07/16 12:06 99 151/98 11/07/16 12:05 100 11/07/16 12:03 101 153/100 11/07/16 12:00 90 11/07/16 12:00 90 145/101 11/07/16 11:55 91 146/106 11/07/16 11:55 92 11/07/16 11:50 91 11/07/16 11:45 95 11/07/16 11:40 99 11/07/16 11:35 85 11/07/16 11:35 88 149/98 11/07/16 11:30 81 143/100 11/07/16 11:30 86 11/07/16 11:25 85 153/101 11/07/16 11:25 83 11/07/16 11:21 152/103 11/07/16 11:21 91 11/07/16 11:20 90 11/07/16 11:19 152/103 11/07/16 11:19 83 11/07/16 11:19 86 11/07/16 11:05 97.6 11/07/16 11:01 18 11/07/16 11:00 81 11/07/16 11:00 84 148/89 11/07/16 10:25 73 11/07/16 10:20 82 11/07/16 10:15 86 11/07/16 10:15 18 11/07/16 10:10 77 11/07/16 10:05 74 11/07/16 10:00 76 141/84 11/07/16 10:00 74 11/07/16 09:55 73 11/07/16 09:50 74 11/07/16 09:45 76 11/07/16 09:11 18 11/07/16 09:10 77 11/07/16 09:05 82 11/07/16 09:01 83 128/86 11/07/16 09:00 73 11/07/16 08:05 80 11/07/16 08:01 81 18 143/97 11/07/16 08:00 74 11/07/16 07:55 74 11/07/16 07:50 74 11/07/16 07:45 74 11/07/16 07:07 75 153/96 11/07/16 07:05 74 11/07/16 07:02 76 11/07/16 07:01 79 7 07:00 77 11/07/16 06:59 18 11/07/16 06:59 97.8 11/07/16 06:55 73 11/07/16 06:50 77 11/07/16 06:45 83 11/07/16 06:40 75 11/07/16 06:35 75 11/07/16 06:30 76 11/07/16 06:25 75 11/07/16 06:20 73 11/07/16 06:15 73 11/07/16 06:10 76 11/07/16 06:05 76 11/07/16 06:00 73 11/07/16 06:00 151/97 11/07/16 06:00 78 11/07/16 06:00 18 11/07/16 05:55 83 11/07/16 05:50 79 11/07/16 05:40 78 11/07/16 05:35 80 11/07/16 05:20 76 11/07/16 05:10 74 11/07/16 05:00 76 153/93 11/07/16 04:59 97.7 11/07/16 04:55 73 11/07/16 04:54 18 11/07/16 04:50 73 11/07/16 04:45 74 11/07/16 04:35 78 11/07/16 04:25 77 11/07/16 04:10 66 11/07/16 04:04 77 11/07/16 04:01 153/96 11/07/16 03:55 68 11/07/16 03:53 18 11/07/16 03:50 69 7 03:25 78 11/07/16 03:10 72 11/07/16 03:01 76 125/75 11/07/16 03:00 18 11/07/16 02:55 73 11/07/16 02:40 72 11/07/16 02:30 80 11/07/16 02:01 150/94 11/07/16 01:55 83 11/07/16 01:52 18 11/07/16 01:50 82 11/07/16 01:35 81 11/07/16 01:15 82 11/07/16 01:10 81 11/07/16 01:01 88 120/70 11/07/16 01:00 18 11/07/16 00:55 85 11/07/16 00:50 85 11/07/16 00:45 81 11/07/16 00:40 79 11/07/16 00:10 78 11/07/16 00:05 77 11/07/16 00:00 97.9 11/07/16 00:00 75 148/91 11/07/16 00:00 18 11/07/16 00:00 18 11/06/16 23:55 76 11/06/16 23:50 73 11/06/16 23:35 77 11/06/16 23:20 74 11/06/16 23:15 74 11/06/16 23:10 84 11/06/16 23:00 145/85 11/06/16 22:52 18 11/06/16 22:25 78 11/06/16 22:10 76 11/06/16 22:00 82 136/83 11/06/16 21:55 78 11/06/16 21:50 86 11/06/16 21:45 81 11/06/16 21:43 18 11/06/16 21:30 81 11/06/16 21:00 131/78 11/06/16 20:55 80 11/06/16 20:53 18 11/06/16 20:45 83 11/06/16 20:40 79 11/06/16 20:10 85 11/06/16 20:05 75 11/06/16 20:00 135/86 11/06/16 19:55 75 11/06/16 19:25 80 11/06/16 19:20 82 11/06/16 19:03 97.8 11/06/16 19:02 18 11/06/16 19:00 72 135/84 11/06/16 18:55 81 11/06/16 18:31 18 11/06/16 18:25 73 11/06/16 18:25 100 11/06/16 18:20 100 11/06/16 18:20 76 11/06/16 18:15 100 11/06/16 18:15 71 11/06/16 18:10 98 11/06/16 18:10 72 11/06/16 18:05 99 11/06/16 18:05 70 11/06/16 18:00 72 132/81 11/06/16 18:00 100 11/06/16 18:00 68 11/06/16 17:55 71 100 11/06/16 17:50 79 100 11/06/16 17:45 75 100 11/06/16 17:40 86 100 11/06/16 17:35 71 100 11/06/16 17:33 18 11/06/16 17:30 100 11/06/16 17:30 79 11/06/16 17:25 100 11/06/16 17:25 73 11/06/16 17:15 100 11/06/16 17:15 83 11/06/16 17:10 100 11/06/16 17:10 86 11/06/16 17:05 100 11/06/16 17:05 86 Result Diagram: 11/06/16 1301 11/05/162049 Objective Remarks GENERAL: Well-nourished, well-developed patient. CARDIOVASCULAR: Regular rate and rhythm without murmurs, gallops, or rubs. RESPIRATORY: Breath sounds equal bilaterally. No accessory muscle use. ABDOMEN/GI: Abdomen soft, non-tender, bowel sounds present. Incision: Clean, dry and intact. Fundus: Firm, non-tender at umbilicus. GENITOURINARY: Light to moderate bleeding. EXTREMITIES: No cyanosis or edema, non-tender, without signs of DVT. Medications and IVs Current Medications Medications (Trade) Dose Ordered Sig/Charles Route Start Time Stop Time Status Last Admin Calcium Gluconate 1 gm 1 gm UNSCH PRN IV PUSH 11/05/16 22:30 (Magnesium Sulfate 40 Gm Premix) 1,000 ml @ 50 mls/hr Q20H IV 11/06/16 11:08 11/08/16 14:40 11/07/16 06:25 (NS Flush) 2 ml BID IV FLUSH 11/07/16 21:00 (NS Flush) 2 ml UNSCH PRN IV FLUSH 11/07/16 15:30 (Tylenol) 650 mg Q4H PRN PO 11/07/16 15:30 (Motrin) 600 mg Q6H PRN PO 11/07/16 15:30 (Americaine 20% Top Spr) 1 spray Q4H PRN TOPICAL 11/07/16 15:30 (Tucks Pads) 1 applic QID PRN TOPICAL 11/07/16 15:30 (Rosie-Colace) 2 tab Q12H PRN PO 11/07/16 15:30 (Ambien) 5 mg HS PRN PO 11/07/16 15:30 (Mag-Al Plus Susp Liq) 15 ml Q8H PRN PO 11/07/16 15:30 (Zofran Odt) 4 mg Q6H PRN PO 11/07/16 15:30 Miscellaneous Information No systemic narcotics to be given except... UNSCH PRN .XX 11/07/16 16:30 11/08/16 16:29 Miscellaneous Information DO NOT ADMINISTER ANY ANTICOAGUL... UNSCH PRN .XX 11/07/16 16:30 11/08/16 16:29 (fentaNYL 2MCG-BUPIV 0.125% INJ) 100 ml @ 0 mls/hr TITRATE EPIDURAL 11/07/16 16:30 Ephedrine Sulfate 10 mg 10 mg UNSCH PRN IV 11/07/16 16:30 11/08/16 16:29 (Pitocin 30 Units-NS 500 ml Premix) 500 ml @ 0 mls/hr TITRATE IV 11/07/16 16:45 Assessment/Plan Problem List: (1) 37 weeks gestation of (2) Elevated blood pressure affecting in third trimester, antepartum Assessment and Plan PPD 0 s/p , IOL secondary to preeclampsia PPH, improving Yuval Ivory MD Nov 07, 2016 17:05 -BPs continued to be elevated, will induce labor and cervical ripening with cytotec. -Admit to L&D -24 hour urine pending -Continuous FHT -GBS treatment with PCN Yuval Ivory MD Nov 07, 2016 17:05
[2016-11-07 18:10] LABS: HEMATOCRIT 30.3 % (35.0-46.0); REVIEW FLAG FINAL
[2016-11-07] MEDS: LABETALOL HCL 100 MG TAB PO SCH ×2 (18:28→21:00)
[2016-11-07] MEDS: SODIUM CHLORIDE 0.9% FLUSH 10 ML FLUSH IV FLUSH SCH (21:00)
[2016-11-08] VITALS (97 sets, daily range): BP systolic 123–153; BP diastolic 70–97; PULSE 68–93; RESP 14–20; TEMP 98.2–98.5; O2SAT 99–100
[2016-11-08] MEDS: MAGNESIUM SULFATE 40 GM PREMIX 1,000 ML IV SCH (04:28)
--- NOTE | 2016-11-08 11:14 | HHI.OB ---
Subjective Post Day: 1 Remarks 31 year old female s/p IVD at 37/ wks gestation, PPD 1. AFVSS. Patient reports she is feeling well. Bleeding is decreasing and pain is well- controlled. She is breast feeding and bonding well with baby. Ambulating without difficulties. She is tolerating a diet without nausea or vomiting. She has not had a bowel movement. She has passed gas. Denies chest pain, dysuria, shortness of breath, or calf pain. Had hemorrhage yesterday, bleeding now decreased to about the amount of a period. Denies lightheadedness. Objective Vitals/I&O Vital Signs Date Time Temp Pulse Resp B/P Pulse Ox O2 Delivery O2 Flow Rate FiO2 11/08/16 09:00 82 140/92 11/08/16 08:00 89 136/74 11/08/16 07:50 77 11/08/16 07:45 75 11/08/16 07:40 77 11/08/16 07:35 75 11/08/16 07:30 75 11/08/16 07:25 75 11/08/16 07:20 83 20 11/08/16 07:15 78 11/08/16 07:10 73 11/08/16 07:05 72 11/08/16 07:00 72 11/08/16 07:00 74 123/73 11/08/16 06:55 83 11/08/16 06:50 89 11/08/16 06:45 78 11/08/16 06:40 79 11/08/16 06:35 79 11/08/16 06:30 79 11/08/16 06:25 80 11/08/16 06:20 78 11/08/16 06:15 79 11/08/16 06:14 16 11/08/16 06:10 80 11/08/16 06:05 75 11/08/16 06:00 79 11/08/16 06:00 82 139/85 11/08/16 05:55 77 11/08/16 05:50 79 11/08/16 05:45 77 11/08/16 05:30 98.3 11/08/16 05:21 16 11/08/16 05:10 100 11/08/16 05:10 84 11/08/16 05:05 100 11/08/16 05:05 83 11/08/16 05:00 99 76 05:00 74 147/89 17 05:00 76 717 04:55 79 717 04:50 79 717 04:45 79 17 04:40 80 17 04:35 79 17 04:30 87 11/08/16 04:30 16 11/08/16 04:25 86 11/08/16 04:20 90 11/08/16 04:15 77 11/08/16 04:10 81 11/08/16 04:05 88 11/08/16 04:00 83 11/08/16 04:00 75 133/79 11/08/16 03:55 78 11/08/16 03:50 74 11/08/16 03:45 72 11/08/16 03:40 76 11/08/16 03:35 75 11/08/16 03:30 78 7 03:25 78 11/08/16 03:20 79 11/08/16 03:15 85 11/08/16 03:11 18 11/08/16 03:10 78 11/08/16 03:05 77 11/08/16 03:00 81 150/89 11/08/16 03:00 78 7 02:55 86 11/08/16 02:50 83 11/08/16 02:45 83 11/08/16 02:40 81 11/08/16 02:35 80 11/08/16 02:30 79 11/08/16 02:25 79 11/08/16 02:20 82 717 02:15 87 7 02:10 89 11/08/16 02:09 98.5 7 02:03 18 11/08/16 02:00 100 17 02:00 89 7 02:00 85 146/90 11/08/16 01:55 83 100 17 01:50 93 100 17 01:45 85 17 01:45 99 617 01:40 99 6/17 01:40 87 17 01:35 89 11/08/16 01:35 99 7/6 01:30 99 6/17 01:30 89 76/17 01:25 88 7617 01:20 88 17 01:15 87 717 01:10 84 7617 01:07 18 11/08/16 01:05 81 76 01:00 81 133/70 11/08/16 01:00 79 717 00:55 82 717 00:55 100 617 00:50 100 617 00:50 82 617 00:45 84 100 6 00:40 89 100 11/08/16 00:35 84 100 11/08/16 00:30 83 100 17 00:30 18 17 00:30 18 11/08/16 00:06 88 149/91 11/07/16 23:30 16 11/07/16 23:00 87 139/90 11/07/16 22:30 16 11/07/16 22:30 98.0 11/07/16 22:10 84 11/07/16 22:05 83 11/07/16 22:00 80 11/07/16 22:00 80 139/86 11/07/16 21:30 16 17 21:25 85 17 21:20 85 17 21:15 86 17 21:10 89 17 21:05 94 11/07/16 21:00 83 137/92 11/07/16 21:00 82 11/07/16 20:30 18 17 20:00 84 136/89 11/07/16 19:30 98.3 17 19:30 18 17 19:00 90 146/98 17 18:55 85 146/94 11/07/16 18:53 88 161/99 17 18:52 18 17 18:04 86 160/100 17 17:59 18 7/17 17:59 98.3 17 17:51 93 162/93 11/07/16 17:22 18 11/07/16 17:00 85 18 156/96 11/07/16 16:45 92 144/96 11/07/16 16:44 18 11/07/16 16:31 116 163/62 11/07/16 16:21 18 11/07/16 16:15 83 156/102 11/07/16 16:03 80 151/93 11/07/16 15:55 18 11/07/16 15:49 85 157/99 11/07/16 15:39 18 11/07/16 15:31 95 149/91 11/07/16 15:21 96 144/87 11/07/16 15:19 97.6 11/07/16 15:17 18 11/07/16 15:01 87 144/91 11/07/16 14:54 88 136/94 11/07/16 14:30 103 155/109 11/07/16 14:10 18 11/07/16 14:00 75 135/90 11/07/16 13:30 72 125/73 11/07/16 13:22 97.4 18 11/07/16 13:00 71 125/79 11/07/16 12:36 83 133/77 11/07/16 12:35 77 11/07/16 12:31 83 132/78 11/07/16 12:30 77 11/07/16 12:28 79 134/87 11/07/16 12:25 87 127/71 11/07/16 12:25 79 11/07/16 12:20 88 129/83 11/07/16 12:20 97 11/07/16 12:15 95 11/07/16 12:15 90 135/87 11/07/16 12:11 18 11/07/16 12:10 93 134/97 11/07/16 12:10 92 11/07/16 12:06 99 151/98 11/07/16 12:05 100 11/07/16 12:03 101 153/100 11/07/16 12:00 90 11/07/16 12:00 90 145/101 11/07/16 11:55 91 146/106 11/07/16 11:55 92 11/07/16 11:50 91 11/07/16 11:45 95 11/07/16 11:40 99 11/07/16 11:35 85 11/07/16 11:35 88 149/98 11/07/16 11:30 81 143/100 11/07/16 11:30 86 11/07/16 11:25 85 153/101 11/07/16 11:25 83 11/07/16 11:21 152/103 11/07/16 11:21 91 11/07/16 11:20 90 11/07/16 11:19 152/103 11/07/16 11:19 83 11/07/16 11:19 86 Objective Remarks GENERAL: Well-nourished, well-developed patient. CARDIOVASCULAR: Regular rate and rhythm without murmurs, gallops, or rubs. RESPIRATORY: Breath sounds equal bilaterally. No accessory muscle use. ABDOMEN/GI: Abdomen soft, non-tender. Fundus: Firm, non-tender at umbilicus. GENITOURINARY: Light to moderate bleeding. EXTREMITIES: No cyanosis or edema, non-tender, without signs of DVT. Medications and IVs Current Medications Medications (Trade) Dose Ordered Sig/Charles Route Start Time Stop Time Status Last Admin Calcium Gluconate 1 gm 1 gm UNSCH PRN IV PUSH 11/05/16 22:30 (Magnesium Sulfate 40 Gm Premix) 1,000 ml @ 50 mls/hr Q20H IV 11/06/16 11:08 11/08/16 14:40 11/08/16 04:28 (NS Flush) 2 ml BID IV FLUSH 11/07/16 21:00 (NS Flush) 2 ml UNSCH PRN IV FLUSH 11/07/16 15:30 (Tylenol) 650 mg Q4H PRN PO 11/07/16 15:30 (Motrin) 600 mg Q6H PRN PO 11/07/16 15:30 11/07/16 23:09 (Americaine 20% Top Spr) 1 spray Q4H PRN TOPICAL 11/07/16 15:30 (Tucks Pads) 1 applic QID PRN TOPICAL 11/07/16 15:30 (Rosie-Colace) 2 tab Q12H PRN PO 11/07/16 15:30 (Ambien) 5 mg HS PRN PO 11/07/16 15:30 (Mag-Al Plus Susp Liq) 15 ml Q8H PRN PO 7/5/17 15:30 (Zofran Odt) 4 mg Q6H PRN PO 11/07/16 15:30 Miscellaneous Information No systemic narcotics to be given except... UNSCH PRN .XX 11/07/16 16:30 11/08/16 16:29 Miscellaneous Information DO NOT ADMINISTER ANY ANTICOAGUL... UNSCH PRN .XX 11/07/16 16:30 11/08/16 16:29 (fentaNYL 2MCG-BUPIV 0.125% INJ) 100 ml @ 0 mls/hr TITRATE EPIDURAL 11/07/16 16:30 Ephedrine Sulfate 10 mg 10 mg UNSCH PRN IV 11/07/16 16:30 11/08/16 16:29 (Pitocin 30 Units-NS 500 ml Premix) 500 ml @ 0 mls/hr TITRATE IV 11/07/16 16:45 (Trandate) 100 mg BID PO 11/07/16 18:30 11/07/16 18:28 Assessment/Plan Problem List: (1) 37 weeks gestation of (2) Elevated blood pressure affecting in third trimester, antepartum (3) hemorrhage Assessment and Plan 31 yo female s/p IVD for pre-eclampsia PPD 1. - Pre-eclampsia: BP averaging low 140s to high 130s, occasional spikes to low 150s - Starting labetalol 100 mg PO BID today - Continue routine care - Motrin PRN pain - Encourage OOB - Post- hemorrhage resolved s/p Pitocin, misoprostol; will re-check H/H today - Pelvic rest x 6 wks. - Contraception: Undecided - Anticipate D/C 11/09 Efrain Krishnamurthy MD R1 Nov 08, 2016 11:14
[2016-11-08] MEDS: LABETALOL HCL 100 MG TAB PO SCH ×2 (12:48→21:11)
[2016-11-08 13:33] LABS: HEMATOCRIT 23.9 % (35.0-46.0); MEAN CELL VOLUME 84.4 FL (80.0-100.0); MEAN CORPUSCULAR HEMOGLOBIN 27.5 PG (27.0-34.0); MEAN CORPUSCULAR HGB CONC 32.7 % (32.0-36.0); PLATELET COUNT 230 TH/MM3 (150-450); RED BLOOD COUNT 2.84 MIL/MM3 (4.00-5.30); RED CELL DISTRIBUTION WIDTH 14.4 % (11.6-17.2); REVIEW FLAG FINAL; WHITE BLOOD COUNT 12.8 TH/MM3 (4.0-11.0)
[2016-11-09 03:19] VITALS: BP 136/82; PULSE 60
[2016-11-09] MEDS ORDERED: IBUP-232 PO (06:48)
--- NOTE | 2016-11-09 06:49 | HHI.DCPOC ---
Discharge Care Plan Diagnosis: (1) Normal vaginal delivery (2) Elevated blood pressure affecting in third trimester, antepartum (3) hemorrhage Report Symptoms to Your Doctor -Temperature above 100.5 degrees -Redness, of incision or excessive or foul smelling drainage -Unusual pain or calf pain -Increased vaginal bleeding -Painful or difficulty urinating -Feelings of extreme sadness or anxiety after 2 weeks Goals to Promote Your Health * To prevent worsening of your condition and complications * To maintain your health at the optimal level Directions to Meet Your Goals Take your medications as prescribed Follow your dietary instruction Follow activity as directed Ensure plenty of rest for recovery Drink fluids for hydration Keep your appointments as scheduled Take your immunizations and boosters as scheduled If your symptoms worsen call your PCP, if no PCP go to Urgent Care Center or Emergency Room Smoking is Dangerous to Your Health. Avoid second hand smoke Call the 24-hour crisis hotline for domestic abuse at Efrain Krishnamurthy MD R1 Nov 09, 2016 06:48
[2016-11-09 07:26] VITALS: BP 132/81; PULSE 61; RESP 18; TEMP 97.8
[2016-11-09] MEDS: SODIUM CHLORIDE 0.9% FLUSH 10 ML FLUSH IV FLUSH SCH (09:00)
[2016-11-09] MEDS ORDERED: LABE100T2 PO (09:02)
[2016-11-09] MEDS: LABETALOL HCL 100 MG TAB PO SCH (10:02)
--- NOTE | 2016-11-09 11:36 | HHI.OB ---
Subjective Remarks 31 year old female A3 s/p at 37/2 wks gestation, PPD2. AFVSS with high BP resolved since 3AM. Patient reports she is feeling well. Bleeding is decreasing and pain is well-controlled. She is breast feeding and bonding well with baby, ambulating without difficulties, tolerating PO, and has had a bowel movement. Denies chest pain, dysuria, shortness of breath, or calf pain. Objective Vitals/I&O Vital Signs Date Time Temp Pulse Resp B/P Pulse Ox O2 Delivery O2 Flow Rate FiO2 11/09/16 07:26 97.8 61 18 132/81 11/09/16 03:19 60 136/82 11/08/16 23:43 72 134/91 11/08/16 20:05 98.2 68 14 144/89 11/08/16 17:00 78 147/82 11/08/16 14:38 74 18 153/82 11/08/16 12:05 18 11/08/16 12:05 74 147/97 Objective Remarks GENERAL: WDWN and in NAD resting in bed. CARDIOVASCULAR: Regular rate and rhythm without murmurs, gallops, or rubs. RESPIRATORY: Breath sounds equal bilaterally with normal WOB. No accessory muscle use. ABDOMEN/GI: Abdomen soft, non-tender. Fundus: Firm, non-tender at umbilicus. GENITOURINARY: Light to moderate bleeding. EXTREMITIES: No cyanosis or edema, non-tender, without signs of DVT. Medications and IVs Current Medications Medications (Trade) Dose Ordered Sig/Charles Route Start Time Stop Time Status Last Admin (Calcium Gluconate Inj) 1 gm UNSCH PRN IV PUSH 11/05/16 22:30 (NS Flush) 2 ml BID IV FLUSH 11/07/16 21:00 (NS Flush) 2 ml UNSCH PRN IV FLUSH 11/07/16 15:30 (Tylenol) 650 mg Q4H PRN PO 11/07/16 15:30 (Motrin) 600 mg Q6H PRN PO 11/07/16 15:30 11/07/16 23:09 (Americaine 20% Top Spr) 1 spray Q4H PRN TOPICAL 11/07/16 15:30 (Tucks Pads) 1 applic QID PRN TOPICAL 11/07/16 15:30 (Rosie-Colace) 2 tab Q12H PRN PO 11/07/16 15:30 (Ambien) 5 mg HS PRN PO 11/07/16 15:30 (Mag-Al Plus Susp Liq) 15 ml Q8H PRN PO 11/07/16 15:30 Ondansetron HCl 4 mg 4 mg Q6H PRN PO 11/07/16 15:30 Fentanyl/ Bupivacaine HCl 100 ml @ 0 mls/hr TITRATE EPIDURAL 11/07/16 16:30 (Pitocin 30 Units-NS 500 ml Premix) 500 ml @ 0 mls/hr TITRATE IV 11/07/16 16:45 (Trandate) 100 mg BID PO 11/07/16 18:30 11/09/16 10:02 Assessment/Plan Problem List: (1) 37 weeks gestation of (2) Elevated blood pressure affecting in third trimester, antepartum (3) hemorrhage Assessment and Plan 31 yo female s/p at 37/2 for pre-eclampsia at PPD2. - Pre-eclampsia: BP averaging low 140s to high 130s, occasional spikes to low 150s - Continuing labetalol 100 mg PO BID and upon d/c - High BP resolved at 3AM - Continue routine care - Motrin PRN pain - Encourage OOB - Post- hemorrhage resolved s/p Pitocin, misoprostol; will re-check H/H today - Pelvic rest x 6 wks - Contraception: Undecided - D/C today 11/09 Justino Crouch MD R1 Nov 09, 2016 11:36
== END 2016-11-09 13:37 | disposition home or self-care (01) | DRG 774 ==
LOC: HOBED 19:48 → H2EB 22:09 → OBSVTOIN 11-06 11:18 → H2EB 11-06 11:19 → H2EA 11-07 17:48 → H1EA 11-08 12:25
PROVIDERS: ADMIT Obstetrics & Gynecology Obstetrics; ATTEND Obstetrics & Gynecology Obstetrics
PROC: 10E0XZZ Delivery of Products of Conception, External Approach (ICD-10-PCS; principal; 2016-11-07)
PROC: 00HU33Z Insertion of Infusion Device into Spinal Canal, Percutaneous Approach (ICD-10-PCS; 2016-11-07)
PROC: 3E0R3CZ (ICD-10-PCS; 2016-11-07)
DX: O14.94 Unspecified pre-eclampsia, complicating childbirth (principal); O72.1 Other immediate postpartum hemorrhage; Z37.0 Single live birth; Z3A.37 37 weeks gestation of pregnancy; O69.81X0 Labor and delivery complicated by cord around neck, without compression, not applicable or unspecified
CPT/HCPCS: 80053; 81001; 84550; 85014; 85018; 85025; 85027; 86592; 88307; 99285; G0378; J2540; J2590; J3010; J3475; J3480; J7030; J7120

== ENCOUNTER 2017-11-15 20:05 | Inpatient (IN) ==
[2017-11-15] MEDS ORDERED: Labetalol HCl Inj 100 MG/20 ML Vial ONE (20:49)
[2017-11-15] MEDS ORDERED: Labetalol HCl Inj 100 MG/20 ML Vial IV.PUSH PRN ×4 (20:54→21:35)
[2017-11-15] MEDS ORDERED: hydrALAZINE HCl Inj 20 MG/ML Vial IV.PUSH PRN ×2 (21:13→21:36)
[2017-11-15] MEDS ORDERED: Mag Sulf/Water 4 gm/100 ml 100 ML IV.SIG ONE (21:13)
[2017-11-15] MEDS ORDERED: NIFEdipine 10 MG Capsule PO PRN (21:13)
[2017-11-15] MEDS ORDERED: Oxytocin 30 Units/500ml Premix 30 UNITS/500 ML BAG IV.SIG ONE (21:16)
[2017-11-15] MEDS ORDERED: Sod Chloride 0.9% Inj 1,000 ML IV.CONT PRN (21:16)
[2017-11-15] MEDS ORDERED: Naloxone Inj 0.4 MG/ML Vial IV.PUSH PRN (21:16)
[2017-11-15] MEDS ORDERED: Sodium Chlor 0.9% Inj 500 ML IV.SIG PRN (21:16)
[2017-11-15] MEDS ORDERED: fentaNYL Citrate Inj 100 MCG/2 ML Ampul IV.PUSH PRN (21:16)
[2017-11-15] MEDS ORDERED: Oxytocin 30 Units/500ml Premix 30 UNITS/500 ML BAG IV.SIG PRN (21:18)
[2017-11-15] MEDS ORDERED: Citric Acid/Sodium Citrate Liq 30 ML UDC PO SCH (21:30)
[2017-11-15 21:47] LABS: Hematocrit 29.3 % (35.0-46.0); Hemoglobin 9.8 gm/dL (11.6-15.3); Mean Corpuscular HGB Conc 33.5 % (32.0-36.0); Mean Corpuscular Hemoglobin 28.8 pg (27.0-34.0); Mean Corpuscular Volume 85.8 fL (80.0-100.0); Mean Platelet Volume 8.6 fL (7.0-11.0); Platelet Count 245 th/mm3 (150-450); Red Blood Count 3.41 mil/mm3 (4.00-5.30); Red Cell Distribution Width 13.4 % (11.6-17.2)
--- NOTE | 2017-11-15 21:53 | ED ---
History of Present Illness Primary Care Physician: UNKNOWN Chief Complaint: elevated BP History of Present Illness: Ms Alexis is a 32 YO with unknown gestational age due to no PNC who presents with BP in 180s/100s for the past two weeks and palpitations. Uncertain dates with L&P estimated at 39 weeks but bedside US indicates 35 weeks gestation. Pt reports no VB, LOF, vaginal discharge, but has good movement. Pt denies IVEIRA but has had blurry vision and some left arm tingling over the past two days. Pt checked her BP yesterday and decided she needed to come to the ED today. Pt had 5 babies at term via , two abortions, and one spontaneous miscarriage. Her last was complicated by pre-eclampsia, but states all other term pregnancies were w/o complications. Last delivery was November 2016 and pt had two periods prior to this . Denies CP, SOB, N/V/D , DVT pain. - Inpatient Certification If this patient has been admitted as an Inpatient: I certify that the inpatient services were ordered in accordance with Medicare regulations governing the order. This includes certification that hospital inpatient services are reasonable and necessary and in the case of services not specified as inpatient-only under 42 CFR 419.22(n), that they are appropriately provided as inpatient services in accordance to with the 2-midnight benchmark under 43 CFR 412.3(e) Estimated Total Length of Stay (Days): 3 Plans for Post Hospital Care: Home Review of Systems Constitutional: Denies chills, Denies fever(s) Eyes: Reports blurry vision (past 2 days) Cardiovascular: Reports rapid, pounding, or irregular heartbeat, Denies chest pain Respiratory: Reports cough, Reports shortness of breath with activity Gastrointestinal: Denies abdominal pain, Denies loose stools, Denies nausea, Denies vomiting Genitourinary: Denies abnormal vaginal bleeding, Denies pelvic pain, Denies vaginal discharge Musculoskeletal: Reports back pain Skin/Breast: Denies lesions, Denies rash Neurologic: Denies dizziness PMFSH - Medical / Surgical Hx Neg / Unobtainable Surgical History: No Previous Surgery - Family History Family History: Family History (Last Updated 11/15/17 @ 21:41 by Justino Crouch III, MD, R1) Father CHF (congestive heart failure) Heart attack HTN (hypertension) - Tobacco History Second Hand Smoke Exposure: Yes Tobacco Use In Past 30 Days: Yes Smoking Status: Current every day smoker Tobacco Type: Cigarettes Packs Per Day: 0.5 - Alcohol History How Often Do You Have a Drink Containing Alcohol: Never - Substance Use History Substance History: No History of Abuse - Travel History History of Recent Travel: No Recent Travel in the [place] Within the Last 8 Weeks: No Recent Travel Out of the Country Within the Last 8 Weeks: No Medications and Allergies Allergies Allergy/AdvReac Type Severity Reaction Status Date / Time No Known Drug Allergies Allergy Mild nkda Verified 11/15/17 21:00 Home Medications Medication Instructions Recorded Confirmed Type No Known Home Medications 11/15/17 11/15/17 History Active Medications: Active Medications Calcium Gluconate (Calcium Gluconate Inj) 1 gm IV.PUSH PRN PRN PRN Reason: Magnesium toxicity Citric Acid/Sodium Citrate (Sodium Citrate/Citric Acid Liq) 30 ml PO [employer] [facility] Stop: 11/19/17 21:29 Dinoprostone (Cervidil Vag Insert) 10 mg VAGINAL ONCE ONE Stop: 11/15/17 21:25 Fentanyl Citrate (Fentanyl Inj) 50 mcg IV.PUSH Q1H PRN PRN Reason: Pain Scale 3 - 5 Fentanyl Citrate (Fentanyl Inj) 100 mcg IV.PUSH Q1H PRN PRN Reason: PAIN SCALE 6 TO 10 Hydralazine HCl (Apresoline Inj) 5 mg IV.PUSH NOW PRN PRN Reason: SEE LABEL COMMENTS Hydralazine HCl (Apresoline Inj) 10 mg IV.PUSH NOW PRN PRN Reason: SEE LABEL COMMENTS Lactated Ringer's (Lr 1000 Ml Inj) 1,000 mls @ 75 mls/hr IV.CONT .[id number] RUDY Lactated Ringer's (Lr 1000 Ml Inj) 1,000 mls @ 125 mls/hr IV.CONT .Q8H RUDY Lactated Ringer's (Lr 1000 Ml Inj) 1,000 mls @ 3,000 mls/hr IV.SIG UNSCH PRN PRN Reason: compromise or epidural Magnesium Sulfate (Magnesium Sulfate/Water 40 Gm/1000 Ml Premix) 40 gm in 1, 000 mls @ 50 mls/hr IV.CONT Q24H RUDY Sodium Chloride (Ns Inj) 500 mls @ 1,000 mls/hr IV.SIG UNSCH PRN PRN Reason: SEE LABEL COMMENTS Sodium Chloride (Ns Inj) 1,000 mls @ 100 mls/hr IV.CONT .Q10H PRN PRN Reason: SEE LABEL COMMENTS Oxytocin (Pitocin 30 Units/Ns 500 Ml Premix) 30 units in 500 mls @ 999 mls/hr IV.SIG BOLUS ONE Stop: 11/15/17 21:46 Magnesium Sulfate (Magnesium Sulfate/Water 4 Gm/100 Ml Premix) 100 mls @ 300 mls/hr IV.SIG ONCE ONE Stop: 11/15/17 21:32 Oxytocin (Pitocin 30 Units/Ns 500 Ml Premix) 30 units in 500 mls @ 2 mls/hr IV.SIG TITRATE PRN; Protocol PRN Reason: For induction of labor Labetalol HCl (Trandate Inj) 20 mg IV.PUSH NOW PRN PRN Reason: SEE LABEL COMMENTS Labetalol HCl (Trandate Inj) 40 mg IV.PUSH NOW PRN PRN Reason: SEE LABEL COMMENTS Labetalol HCl (Trandate Inj) 20 mg IV.PUSH NOW PRN PRN Reason: SEE LABEL COMMENTS Labetalol HCl (Trandate Inj) 80 mg IV.PUSH NOW PRN PRN Reason: SEE LABEL COMMENTS Lidocaine HCl (Xylocaine 1% Inj) 0.1 ml I-DERMAL PRN PRN PRN Reason: For IV start Stop: 11/18/17 21:15 Lidocaine HCl (Xylocaine 1% Inj) 10 ml INFILTRATN PRN PRN PRN Reason: For episiotomy repair Stop: 11/17/17 21:15 Mineral Oil (Muri-Lube Oil) 10 ml TOPICAL PRN PRN PRN Reason: PRN perineal massage Naloxone HCl (Narcan Inj) 0.1 mg IV.PUSH Q2M PRN PRN Reason: for opiate reversal Nifedipine (Procardia) 10 mg PO NOW PRN PRN Reason: SEE LABEL COMMENTS Ondansetron HCl (Zofran Inj) 4 mg IV.PUSH Q6H PRN PRN Reason: NAUSEA OR VOMITING Sodium Chloride (Ns Flush) 2 ml IV.FLUSH PRN PRN PRN Reason: FLUSH AFTER USING IV ACCESS Sodium Chloride (Ns Flush) 2 ml IV.FLUSH BID RUDY Sodium Chloride (Ns Flush) 2 ml IV.FLUSH BID RUDY Sodium Chloride (Ns Flush) 2 ml IV.FLUSH PRN PRN PRN Reason: FLUSH AFTER USING IV ACCESS Exam Vital signs: Vital Signs 11/15/17 20:38 11/15/17 20:45 11/15/17 20:48 Temperature 98.1 F Pulse Rate 73 Respiratory Rate 18 18 Blood Pressure 176/102 H Intake & Output 11/15/17 11/15/17 11/16/17 06:59 18:59 06:59 Weight 87.997 kg Narrative: GENERAL: Well-nourished, well-developed patient in NAD. SKIN: Warm and dry. HEAD: Normocephalic and atraumatic. EYES: No scleral icterus. No injection or drainage. ENT: No nasal drainage noted. Mucous membranes pink. Airway patent. NECK: Supple, trachea midline. No JVD. CARDIOVASCULAR: Regular rate and rhythm without murmurs, gallops, or rubs. RESPIRATORY: Breath sounds equal bilaterally. No accessory muscle use. ABDOMEN/GI: Abdomen soft, gravid, non-tender, bowel sounds present, no rebound, no guarding Gravid to - weeks size Fundal Height: - GENITOURINARY: External Genitalia: intact and normal in appearance Cervix: closed Dilatation: fingertip (1) Effacement: 30 Station: -3 Presentation: vtx Membranes: intact Uterine Contractions: absent FHT's: Category: 1 Baseline: 140 Reactive: yes Variability: moderate Decels: absent EXTREMITIES: No cyanosis or edema. BACK: Nontender without obvious deformity. No CVA tenderness. NEUROLOGICAL: Awake and alert. Motor and sensory grossly within normal limits. Five out of 5 muscle strength in all muscle groups. Normal speech. Results - Labs CBC & Chem 7: 11/15/17 21:00 11/15/17 21:00 Assessment and Plan - Diagnosis (1) 35 weeks gestation of Code(s): Z3A.35 - 35 weeks gestation of Status: Acute (2) No care in current Code(s): O09.30 - Supervision of with insufficient care, unspecified trimester Status: Acute (3) Grand multipara Code(s): Z64.1 - Problems related to multiparity Status: Acute Discharge Plan - Physicians Team Primary Care Provider: UNKNOWN, Attending Provider: Mady Hunter V
[2017-11-15 21:55] LABS: Protein/Creatinine Ratio,Urine 0.32 (0.00-0.14)
[2017-11-15] MEDS ORDERED: Mag Sulf/Water 40 gm/1000 ml 40 GM/1,000 ML BAG IV.CONT SCH (22:00)
[2017-11-15 22:06] LABS: Alanine Aminotransferase 20 U/L (10-53); Albumin 2.7 g/dL (3.4-5.0); Alkaline Phosphatase 135 U/L (45-117); Anion Gap 14 meq/L (5-15); Aspartate Aminotransferase 23 U/L (15-37); Blood Urea Nitrogen 5 mg/dL (7-18); Carbon Dioxide 23.2 meq/L (21.0-32.0); Chloride 102 meq/L (98-107); Glomerular Filtration Rate Greater Than 89 mL/min (>89); Glucose,Random 71 mg/dL (74-106); Sodium 139 meq/L (136-145); Total Protein 6.6 g/dL (6.4-8.2); Uric Acid 5.9 mg/dl (2.6-6.0)
--- NOTE | 2017-11-15 22:09 | P.HPOB ---
History of Present Illness Primary Care Physician: UNKNOWN Chief Complaint: elevated BP History of Present Illness: Ms Alexis is a 32 YO with unknown gestational age due to no PNC who presents with BP in 180s/100s for the past two weeks and palpitations. Uncertain dates with L&P estimated at 39 weeks but bedside US indicates 35 weeks gestation. Pt reports no VB, LOF, vaginal discharge, but has good movement. Pt denies VIEIRA but has had blurry vision and some left arm tingling over the past two days. Pt checked her BP yesterday and decided she needed to come to the ED today. Pt had 5 babies at term via , two abortions, and one spontaneous miscarriage. Her last was complicated by pre-eclampsia, but states all other term pregnancies were w/o complications. Last delivery was November 2016 and pt had two periods prior to this . Denies CP, SOB, N/V/D , DVT pain. - Inpatient Certification If this patient has been admitted as an Inpatient: I certify that the inpatient services were ordered in accordance with Medicare regulations governing the order. This includes certification that hospital inpatient services are reasonable and necessary and in the case of services not specified as inpatient-only under 42 CFR 419.22(n), that they are appropriately provided as inpatient services in accordance to with the 2-midnight benchmark under 43 CFR 412.3(e) Estimated Total Length of Stay (Days): 3 Plans for Post Hospital Care: Home Review of Systems Constitutional: Denies chills, Denies fever(s) Eyes: Reports blurry vision (past 2 days) Cardiovascular: Reports rapid, pounding, or irregular heartbeat, Denies chest pain Respiratory: Reports cough, Reports shortness of breath with activity Gastrointestinal: Denies abdominal pain, Denies loose stools, Denies nausea, Denies vomiting Genitourinary: Denies abnormal vaginal bleeding, Denies pelvic pain, Denies vaginal discharge Musculoskeletal: Reports back pain Skin/Breast: Denies lesions, Denies rash Neurologic: Denies dizziness PMFSH - Medical / Surgical Hx Neg / Unobtainable Surgical History: No Previous Surgery - Family History Family History: Family History (Last Updated 11/15/17 @ 21:41 by Justino Crouch III, MD, R1) Father CHF (congestive heart failure) Heart attack HTN (hypertension) - Tobacco History Second Hand Smoke Exposure: Yes Tobacco Use In Past 30 Days: Yes Smoking Status: Current every day smoker Tobacco Type: Cigarettes Packs Per Day: 0.5 - Alcohol History How Often Do You Have a Drink Containing Alcohol: Never - Substance Use History Substance History: No History of Abuse - Travel History History of Recent Travel: No Recent Travel in the [place] Within the Last 8 Weeks: No Recent Travel Out of the Country Within the Last 8 Weeks: No Medications and Allergies Active Medications: Active Medications Calcium Gluconate (Calcium Gluconate Inj) 1 gm IV.PUSH PRN PRN PRN Reason: Magnesium toxicity Citric Acid/Sodium Citrate (Sodium Citrate/Citric Acid Liq) 30 ml PO TURPENTINE DISTILLER RUDY Stop: 11/19/17 21:29 Dinoprostone (Cervidil Vag Insert) 10 mg VAGINAL ONCE ONE Stop: 11/15/17 21:25 Fentanyl Citrate (Fentanyl Inj) 50 mcg IV.PUSH Q1H PRN PRN Reason: Pain Scale 3 - 5 Fentanyl Citrate (Fentanyl Inj) 100 mcg IV.PUSH Q1H PRN PRN Reason: PAIN SCALE 6 TO 10 Hydralazine HCl (Apresoline Inj) 5 mg IV.PUSH NOW PRN PRN Reason: SEE LABEL COMMENTS Hydralazine HCl (Apresoline Inj) 10 mg IV.PUSH NOW PRN PRN Reason: SEE LABEL COMMENTS Lactated Ringer's (Lr 1000 Ml Inj) 1,000 mls @ 75 mls/hr IV.CONT .[id number] RUDY Lactated Ringer's (Lr 1000 Ml Inj) 1,000 mls @ 125 mls/hr IV.CONT .Q8H RUDY Lactated Ringer's (Lr 1000 Ml Inj) 1,000 mls @ 3,000 mls/hr IV.SIG UNSCH PRN PRN Reason: compromise or epidural Magnesium Sulfate (Magnesium Sulfate/Water 40 Gm/1000 Ml Premix) 40 gm in 1, 000 mls @ 50 mls/hr IV.CONT Q24H RUDY Sodium Chloride (Ns Inj) 500 mls @ 1,000 mls/hr IV.SIG UNSCH PRN PRN Reason: SEE LABEL COMMENTS Sodium Chloride (Ns Inj) 1,000 mls @ 100 mls/hr IV.CONT .Q10H PRN PRN Reason: SEE LABEL COMMENTS Oxytocin (Pitocin 30 Units/Ns 500 Ml Premix) 30 units in 500 mls @ 999 mls/hr IV.SIG BOLUS ONE Stop: 11/15/17 21:46 Magnesium Sulfate (Magnesium Sulfate/Water 4 Gm/100 Ml Premix) 100 mls @ 300 mls/hr IV.SIG ONCE ONE Stop: 11/15/17 21:32 Oxytocin (Pitocin 30 Units/Ns 500 Ml Premix) 30 units in 500 mls @ 2 mls/hr IV.SIG TITRATE PRN; Protocol PRN Reason: For induction of labor Labetalol HCl (Trandate Inj) 20 mg IV.PUSH NOW PRN PRN Reason: SEE LABEL COMMENTS Labetalol HCl (Trandate Inj) 40 mg IV.PUSH NOW PRN PRN Reason: SEE LABEL COMMENTS Labetalol HCl (Trandate Inj) 20 mg IV.PUSH NOW PRN PRN Reason: SEE LABEL COMMENTS Labetalol HCl (Trandate Inj) 80 mg IV.PUSH NOW PRN PRN Reason: SEE LABEL COMMENTS Lidocaine HCl (Xylocaine 1% Inj) 0.1 ml I-DERMAL PRN PRN PRN Reason: For IV start Stop: 11/18/17 21:15 Lidocaine HCl (Xylocaine 1% Inj) 10 ml INFILTRATN PRN PRN PRN Reason: For episiotomy repair Stop: 11/17/17 21:15 Mineral Oil (Muri-Lube Oil) 10 ml TOPICAL PRN PRN PRN Reason: PRN perineal massage Naloxone HCl (Narcan Inj) 0.1 mg IV.PUSH Q2M PRN PRN Reason: for opiate reversal Nifedipine (Procardia) 10 mg PO NOW PRN PRN Reason: SEE LABEL COMMENTS Ondansetron HCl (Zofran Inj) 4 mg IV.PUSH Q6H PRN PRN Reason: NAUSEA OR VOMITING Sodium Chloride (Ns Flush) 2 ml IV.FLUSH PRN PRN PRN Reason: FLUSH AFTER USING IV ACCESS Sodium Chloride (Ns Flush) 2 ml IV.FLUSH BID RUDY Sodium Chloride (Ns Flush) 2 ml IV.FLUSH BID RUDY Sodium Chloride (Ns Flush) 2 ml IV.FLUSH PRN PRN PRN Reason: FLUSH AFTER USING IV ACCESS Allergies Allergy/AdvReac Type Severity Reaction Status Date / Time No Known Drug Allergies Allergy Mild nkda Verified 11/15/17 21:00 Home Medications Medication Instructions Recorded Confirmed Type No Known Home Medications 11/15/17 11/15/17 History Exam Vital signs: Vital Signs 11/15/17 20:38 11/15/17 20:45 11/15/17 20:48 Temperature 98.1 F Pulse Rate 73 Respiratory Rate 18 18 Blood Pressure 176/102 H Intake & Output 11/15/17 11/15/17 11/16/17 06:59 18:59 06:59 Weight 87.997 kg Narrative: GENERAL: Well-nourished, well-developed patient in NAD. SKIN: Warm and dry. HEAD: Normocephalic and atraumatic. EYES: No scleral icterus. No injection or drainage. ENT: No nasal drainage noted. Mucous membranes pink. Airway patent. NECK: Supple, trachea midline. No JVD. CARDIOVASCULAR: Regular rate and rhythm without murmurs, gallops, or rubs. RESPIRATORY: Breath sounds equal bilaterally. No accessory muscle use. ABDOMEN/GI: Abdomen soft, gravid, non-tender, bowel sounds present, no rebound, no guarding Gravid to - weeks size Fundal Height: - GENITOURINARY: External Genitalia: intact and normal in appearance Cervix: closed Dilatation: fingertip (1) Effacement: 30 Station: -3 Presentation: vtx Membranes: intact Uterine Contractions: absent FHT's: Category: 1 Baseline: 140 Reactive: yes Variability: moderate Decels: absent EXTREMITIES: No cyanosis or edema. BACK: Nontender without obvious deformity. No CVA tenderness. NEUROLOGICAL: Awake and alert. Motor and sensory grossly within normal limits. Five out of 5 muscle strength in all muscle groups. Normal speech. Results - Labs CBC & Chem 7: 11/15/17 21:00 11/15/17 21:00 Assessment and Plan - Diagnosis (1) Pre-eclampsia during in third trimester, antepartum Code(s): O14.93 - Unspecified pre-eclampsia, third trimester Status: Acute Plan: 32 YO with unknown gestational age due to no PNC presents with BP 170s/ 95 concerning for pre-eclampsia. Uncertain dates with L&P estimated at 39 weeks but bedside US indicates 35 weeks gestation. PLAN: -Admit for induction of labor -Mag sulfate IV for 24 hours per protocol -Labetalol IV titrate per protocol -Cervidil 10 mg per vagina - labs including rapid GBS -Pre-eclampsia labs -UA Pt SDW Jaden Hunter and Rk Hogan Discharge Plan - Discharge Disposition Patient Disposition: 02 Transfer To [facility] [place] - Discharge Condition Condition: Stable - Physicians Team Primary Care Provider: UNKNOWN, Attending Provider: Mady Hunter V
[2017-11-15 22:11] LABS: Potassium 2.8 meq/L (3.5-5.1)
[2017-11-15 22:27] LABS: Hepatitits B Surface Antigen Nonreactive (Nonreactive)
[2017-11-15 22:55] LABS: Hepatitis A IgM Antibody Nonreactive (Nonreactive)
[2017-11-16] MEDS: Potassium Chlor 20 mEq Premix 20 MEQ/100 ML PIGGYBACK IV.SIG SCH ×2 (00:32→03:15)
[2017-11-16] MEDS: fentaNYL Citrate Inj 100 MCG/2 ML Ampul IV.PUSH PRN ×3 (03:29→09:55)
[2017-11-16 04:23] LABS: Amphetamine Screen,Urine Neg (Neg); Barbiturate Screen,Urine Neg (Neg); Cannabinoid Screen,Urine Neg (Neg); Cocaine Screen,Urine Neg (Neg)
[2017-11-16 04:24] LABS: Amorphous Sediment,Urine Rare /hpf; Bacteria,Urine Rare /hpf; Bilirubin,Urine Negative (Negative); Clarity,Urine Cloudy (Clear); Color,Urine Amber (Yellw/Straw); Glucose,Urine (UA) Negative (Negative); Leukocyte Esterase,Urine Negative (Negative); Mucus,Urine Few /lpf (Occasional); Nitrite,Urine Negative (Negative); Opiate Screen,Urine Neg (Neg); Specific Gravity,Urine 1.018 (1.002-1.035); Squamous Epithelial Cell,Urine 3 /hpf (0-5); Uric Acid Crystals,Urine Few /hpf; Urobilinogen,Urine 4 or Greater mg/dL (Less than 2)
[2017-11-16] MEDS ORDERED: NIFEdipine 10 MG Capsule PO ONE (08:15)
--- NOTE | 2017-11-16 08:35 | P.OBLABOR ---
Subjective Interval history: Ms Alexis BP reduced overnight to wnl, but this morning has been elevated to 172/ 102 with blurry vision, a headache and ctx pain. Pt was given Procardia 10 mg that reduced BP to 154/107. Labetalol 20 mg IV was then started and will titrate per protocol. Fentanyl 100 mcg was given for pain. Cervidil was placed last night around 22:30 hours and will come out at 10:30AM today. Cervix is 2/70 /-3, membranes intact. FHT with Cat 1 tracing, BL 125, reactive, moderate, and no decels. Objective Vital Signs: Vital Signs - 8 hr 11/16/17 01:03 11/16/17 03:00 11/16/17 03:08 Temperature Pulse Rate 78 81 Respiratory Rate 18 18 18 Blood Pressure 139/80 141/81 H 11/16/17 03:28 11/16/17 04:00 11/16/17 05:06 Temperature 97.9 F Pulse Rate 89 76 Respiratory Rate 16 Blood Pressure 152/104 H 136/91 H 11/16/17 06:39 11/16/17 07:23 11/16/17 07:35 Temperature 97.7 F Pulse Rate 78 78 74 Respiratory Rate 18 18 Blood Pressure 142/82 H 164/101 H 172/102 H 11/16/17 07:55 11/16/17 08:19 Temperature Pulse Rate 84 Respiratory Rate 20 Blood Pressure 154/107 H Objective: Pelvic Exam: Cervix: open Dilatation: 2 Effacement: 70 Station: -3 Presentation: vtx Membranes: intact Uterine Contractions: q3-5 minutes FHT's: Category: 1 Baseline: 120 Reactive: yes Variability: moderate Decels: absent Medical Induction of Labor: Yes Medical Induction Start Date: 11/15/17 Medical Induction Start Time: 22:30 Assessment and Plan - Diagnosis (1) Pre-eclampsia during in third trimester, antepartum Code(s): O14.93 - Unspecified pre-eclampsia, third trimester Status: Acute Plan: 32 YO with unknown gestational age due to no PNC presents with BP 170s/ 95 concerning for pre-eclampsia. Uncertain dates with L&P estimated at 39 weeks but bedside US indicates 35 weeks gestation. PLAN: -Admit for induction of labor -Mag sulfate IV for 24 hours per protocol -Labetalol IV titrate per protocol -Procardia 10 mg PO -Fentanyl 100mcg -Cervidil 10 mg per vagina -Potassium 2.9 on admit and 3.0 this morning --KCl 40 meq PO once --Re-check K+ in afternoon Pt DW Dr Hunter
--- NOTE | 2017-11-16 10:14 | P.OBLABOR ---
Subjective Interval history: c/o painful contractions. s/p cervidil. Objective Vital Signs: Vital Signs - 8 hr 11/16/17 03:00 11/16/17 03:08 11/16/17 03:28 Temperature 97.9 F Pulse Rate 81 Respiratory Rate 18 18 Blood Pressure 141/81 H 11/16/17 04:00 11/16/17 05:06 11/16/17 06:39 Temperature Pulse Rate 89 76 78 Respiratory Rate 16 18 Blood Pressure 152/104 H 136/91 H 142/82 H 11/16/17 07:23 11/16/17 07:35 11/16/17 07:55 Temperature 97.7 F Pulse Rate 78 74 84 Respiratory Rate 18 Blood Pressure 164/101 H 172/102 H 154/107 H 11/16/17 08:19 11/16/17 08:25 11/16/17 08:37 Temperature Pulse Rate 78 Respiratory Rate 20 20 Blood Pressure 152/96 H 11/16/17 09:15 11/16/17 09:16 11/16/17 09:25 Temperature Pulse Rate 84 88 Respiratory Rate 18 18 Blood Pressure 140/90 11/16/17 10:00 Temperature Pulse Rate 92 H Respiratory Rate Blood Pressure 144/88 H Objective: Pelvic Exam: Cervix: [-4] Dilatation: [-4] Effacement: [90-] Station: [--1] Presentation: [-] Membranes: [ruptured] Uterine Contractions: [-q4] FHT's: Category: [-1] Baseline: [-140] Reactive: [-mod] Variability: [mod-] Decels: [-absent] Patient Started Active Labor: Yes Artificial ROM Date: 11/16/17 Artificial ROM Time: 10:12 Assessment and Plan - Diagnosis (1) 35 weeks gestation of Code(s): Z3A.35 - 35 weeks gestation of Status: Acute (2) No care in current Code(s): O09.30 - Supervision of with insufficient care, unspecified trimester Status: Acute (3) Grand multipara Code(s): Z64.1 - Problems related to multiparity Status: Acute (4) Severe pre-eclampsia affecting 10th Code(s): O14.10 - Severe pre-eclampsia, unspecified trimester; O09.40 - Supervision of with grand multiparity, unspecified trimester Status : Acute
[2017-11-16] MEDS ORDERED: fentaNYL 2MCG-Bupiv 0.125% Epi 150 ML EPIDURAL ONE (10:17)
[2017-11-16] MEDS ORDERED: fentaNYL 2MCG-Bupiv 0.125% Epi 150 ML EPIDURAL PRN (11:03)
[2017-11-16] MEDS ORDERED: fentaNYL Citrate Inj 100 MCG/2 ML Ampul EPIDURAL ONE (11:03)
[2017-11-16] MEDS ORDERED: Witch Hazel 50%/Glyderin 12.5% 40 Pad Jar RECTAL PRN (11:20)
[2017-11-16] MEDS ORDERED: Acetaminophen 325 MG Tablet PO PRN (11:20)
[2017-11-16] MEDS ORDERED: Ibuprofen 400 MG Tablet PO PRN (11:20)
[2017-11-16] MEDS ORDERED: Bisacodyl 10 MG Supp RECTAL PRN (11:20)
[2017-11-16] MEDS ORDERED: Benzocaine 20% Top Spray 60 ML Can TOPICAL PRN (11:20)
[2017-11-16] MEDS ORDERED: Naloxone Inj 0.4 MG/ML Vial IV.PUSH PRN (11:20)
--- NOTE | 2017-11-16 11:20 | P.OBDELI ---
Weeks Gestation: 39 Medical Induction of Labor: Yes Artificial Rupture of Membrane: Yes Anesthesia: Epidural Episiotomy: none Vaginal Delivery: Normal, Spontaneous Presentation: Occiput anterior Nuchal Cord: x1 Delayed Cord Clamping (45 sec): No (nuchal cord cut at perineum) Placenta: Spontaneous delivery Laceration: None Estimated blood loss (mL): 100 : Female (apgars 9/9)
[2017-11-16] MEDS ORDERED: Oxytocin 30 Units/500ml Premix 30 UNITS/500 ML BAG IV.CONT SCH (11:30)
[2017-11-16] MEDS ORDERED: Mag Sulf/Water 40 gm/1000 ml 40 GM/1,000 ML BAG IV.CONT ONE (15:15)
[2017-11-16] MEDS ORDERED: Measles/Mumps/Rubella Vaccine Inj 0.5 ML Vial SQ ONE (16:00)
[2017-11-16] MEDS ORDERED: Diphtheria/Tetanus/Pertussis Vaccine Inj 0.5 ML Syringe IM ONE (16:00)
[2017-11-17] MEDS: Senna/Docusate Sodium 8.6/50 MG Tablet PO SCH (08:19)
--- NOTE | 2017-11-17 09:11 | P.PNOB ---
Subjective Post day: 1 Interval history: day #1. Decreased lochia. Denies dysuria. No breast tenderness. Appetite good. No nausea or vomiting. Ambulating well. Denies calf pain or shortness of breath. Otherwise, she is doing well this morning and has no other complaints. Objective Vital Signs/I&O: Vital Signs 11/16/17 09:15 11/16/17 09:16 11/16/17 09:25 Temperature Pulse Rate 84 88 Respiratory Rate 18 18 Blood Pressure 140/90 11/16/17 10:00 11/16/17 10:40 11/16/17 10:45 Temperature Pulse Rate 92 H 91 H 94 H Respiratory Rate Blood Pressure 144/88 H 153/96 H 136/88 11/16/17 10:53 11/16/17 11:00 11/16/17 11:15 Temperature Pulse Rate 90 104 H Respiratory Rate 20 20 Blood Pressure 136/95 H 125/73 11/16/17 11:31 11/16/17 11:45 11/16/17 11:50 Temperature Pulse Rate 92 H 97 H Respiratory Rate 18 Blood Pressure 133/93 H 134/87 11/16/17 12:00 11/16/17 12:05 11/16/17 12:30 Temperature Pulse Rate 79 83 Respiratory Rate 20 Blood Pressure 125/81 129/83 11/16/17 12:45 11/16/17 12:50 11/16/17 13:25 Temperature Pulse Rate 81 73 Respiratory Rate 20 Blood Pressure 136/89 138/88 11/16/17 13:26 11/16/17 13:30 11/16/17 13:45 Temperature Pulse Rate 73 73 Respiratory Rate 18 Blood Pressure 140/89 11/16/17 14:00 11/16/17 14:44 11/16/17 14:45 Temperature 98.4 F Pulse Rate 77 Respiratory Rate 18 18 Blood Pressure 140/89 11/16/17 14:50 11/16/17 14:55 11/16/17 15:00 Temperature Pulse Rate 76 86 78 Respiratory Rate Blood Pressure 140/92 H 11/16/17 15:55 11/16/17 16:00 11/16/17 16:40 Temperature Pulse Rate 78 84 Respiratory Rate 18 18 Blood Pressure 145/93 H 140/86 11/16/17 17:25 11/16/17 17:55 11/16/17 18:00 Temperature Pulse Rate 74 81 Respiratory Rate 18 Blood Pressure 146/95 H 11/16/17 18:35 11/16/17 20:25 11/16/17 20:30 Temperature Pulse Rate 84 78 78 Respiratory Rate Blood Pressure 157/97 H 154/97 H 11/16/17 22:00 11/16/17 23:04 11/17/17 00:00 Temperature Pulse Rate 79 78 Respiratory Rate 18 18 Blood Pressure 166/105 H 145/93 H 11/17/17 01:00 11/17/17 02:00 11/17/17 03:00 Temperature Pulse Rate 80 77 Respiratory Rate 18 16 Blood Pressure 143/93 H 142/91 H 11/17/17 03:08 11/17/17 03:15 11/17/17 03:55 Temperature Pulse Rate 87 84 81 Respiratory Rate 18 Blood Pressure 134/86 140/98 H 11/17/17 05:35 11/17/17 05:40 11/17/17 05:55 Temperature Pulse Rate 79 75 73 Respiratory Rate 20 Blood Pressure 147/97 H 11/17/17 06:04 11/17/17 06:25 11/17/17 06:55 Temperature Pulse Rate 74 72 76 Respiratory Rate 18 Blood Pressure 152/93 H 11/17/17 07:00 11/17/17 07:09 11/17/17 07:15 Temperature 98.2 F Pulse Rate 71 Respiratory Rate 16 Blood Pressure 158/106 H 11/17/17 07:25 11/17/17 08:05 11/17/17 08:50 Temperature Pulse Rate 70 79 72 Respiratory Rate Blood Pressure 144/85 H Intake & Output 11/16/17 11/17/17 11/17/17 18:59 06:59 18:59 Intake Total 1000 / 1000 1000 / 1000 Output Total 350 / 350 Balance 650 / 650 1000 / 1000 Weight 89 kg Intake: IV 1000 / 1000 1000 / 1000 LR 1000 mL Inj 1,000 ML @ 75 1000 / 1000 1000 / 1000 mls/hr IV.CONT .[id number] [facility] Rx# :[id number] Output: Urine 350 / 350 Result Diagrams: 11/15/17 21:00 11/16/17 07:24 Objective Remarks: GENERAL: Well-nourished, well-developed patient. CARDIOVASCULAR: Regular rate and rhythm without murmurs, gallops, or rubs. RESPIRATORY: Breath sounds equal bilaterally. No accessory muscle use. ABDOMEN/GI: Abdomen soft, non-tender. Fundus: Firm, non-tender at umbilicus. GENITOURINARY: Light to moderate bleeding. EXTREMITIES: No cyanosis or edema, non-tender, without signs of DVT. Medications and IVs: Active Medications Acetaminophen (Tylenol) 650 mg PO Q4H PRN PRN Reason: PAIN SCALE 1 TO 2 Al Hydroxide/Mg Hydroxide (Milk Of Magnesia Liq) 30 ml PO Q12H PRN PRN Reason: Mild Constipation Benzocaine (Americaine 20% Top [place]) 1 spray TOPICAL Q4H PRN PRN Reason: For Perineum Discomfort Bisacodyl (Dulcolax Supp) 10 mg RECTAL DAILY PRN PRN Reason: SEVERE CONSITIPATION Calcium Gluconate (Calcium Gluconate Inj) 1 gm IV.PUSH PRN PRN PRN Reason: Magnesium toxicity Citric Acid/Sodium Citrate (Sodium Citrate/Citric Acid Liq) 30 ml PO [employer] [facility] Stop: 11/19/17 21:29 Ephedrine Sulfate (Ephedrine/Ns Syringe) 10 mg IV.PUSH UNSCH PRN PRN Reason: SEE LABEL COMMENTS Stop: 11/17/17 11:11 Fentanyl Citrate (Fentanyl Inj) 50 mcg IV.PUSH Q1H PRN PRN Reason: Pain Scale 3 - 5 Fentanyl Citrate (Fentanyl Inj) 100 mcg IV.PUSH Q1H PRN PRN Reason: PAIN SCALE 6 TO 10 Last Admin: 11/16/17 09:55 Dose: 100 mcg Hydralazine HCl (Apresoline Inj) 5 mg IV.PUSH NOW PRN PRN Reason: SEE LABEL COMMENTS Hydralazine HCl (Apresoline Inj) 10 mg IV.PUSH NOW PRN PRN Reason: SEE LABEL COMMENTS Lactated Ringer's (Lr 1000 Ml Inj) 1,000 mls @ 75 mls/hr IV.CONT .[id number] [facility] Last Admin: 11/17/17 08:11 Dose: 75 mls/hr Lactated Ringer's (Lr 1000 Ml Inj) 1,000 mls @ 125 mls/hr IV.CONT .Q8H [facility] Last Admin: 11/16/17 09:43 Dose: Not Given Lactated Ringer's (Lr 1000 Ml Inj) 1,000 mls @ 3,000 mls/hr IV.SIG UNSCH PRN PRN Reason: compromise or epidural Last Admin: 11/16/17 10:49 Dose: 3,000 mls/hr Magnesium Sulfate (Magnesium Sulfate/Water 40 Gm/1000 Ml Premix) 40 gm in 1, 000 mls @ 50 mls/hr IV.CONT Q24H [facility] Last Admin: 11/15/17 21:52 Dose: 2 gm/hr, 50 mls/hr Sodium Chloride (Ns Inj) 500 mls @ 1,000 mls/hr IV.SIG UNSCH PRN PRN Reason: SEE LABEL COMMENTS Sodium Chloride (Ns Inj) 1,000 mls @ 100 mls/hr IV.CONT .Q10H PRN PRN Reason: SEE LABEL COMMENTS Oxytocin (Pitocin 30 Units/Ns 500 Ml Premix) 30 units in 500 mls @ 2 mls/hr IV.SIG TITRATE PRN; Protocol PRN Reason: For induction of labor Fentanyl/Bupivacaine/Sodium Chlor (Fentanyl 2 Mcg-Bupiv 0.125% Epi) 150 mls @ 12 mls/hr EPIDURAL PRN PRN PRN Reason: for Labor Pain Last Admin: 11/16/17 10:41 Dose: 12 mls/hr Labetalol HCl (Trandate Inj) 80 mg IV.PUSH NOW PRN PRN Reason: SEE LABEL COMMENTS Lactulose (Lactulose Liq) 30 ml PO DAILY PRN PRN Reason: SEVERE CONSITIPATION Lidocaine HCl (Xylocaine 1% Inj) 0.1 ml I-DERMAL PRN PRN PRN Reason: For IV start Stop: 11/18/17 21:15 Lidocaine HCl (Xylocaine 1% Inj) 10 ml INFILTRATN PRN PRN PRN Reason: For episiotomy repair Stop: 11/17/17 21:15 Mineral Oil (Muri-Lube Oil) 10 ml TOPICAL PRN PRN PRN Reason: PRN perineal massage Miscellaneous Information (Misc Information) 1 each OTHER UNSCH PRN PRN Reason: SEE LABEL COMMENTS Stop: 11/17/17 11:11 Miscellaneous Information (Misc Information) 1 each OTHER UNSCH PRN PRN Reason: SEE LABEL COMMENTS Stop: 11/17/17 11:11 Naloxone HCl (Narcan Inj) 0.1 mg IV.PUSH Q2M PRN PRN Reason: for opiate reversal Naloxone HCl (Narcan Inj) 0.1 mg IV.PUSH Q2M PRN PRN Reason: for opiate reversal Nifedipine (Procardia Xl) 30 mg PO DAILY [facility] Ondansetron HCl (Zofran Inj) 4 mg IV.PUSH Q6H PRN PRN Reason: NAUSEA OR VOMITING Ondansetron HCl (Zofran Odt) 4 mg PO Q6H PRN PRN Reason: NAUSEA OR VOMITING Senna/Docusate Sodium (Rosie-Colace) 1 tab PO BID [facility] Last Admin: 11/17/17 08:19 Dose: Not Given Sennosides (Senokot) 17.2 mg PO Q12H PRN PRN Reason: Moderate Constipation Sodium Chloride (Ns Flush) 2 ml IV.FLUSH PRN PRN PRN Reason: FLUSH AFTER USING IV ACCESS Sodium Chloride (Ns Flush) 2 ml IV.FLUSH BID [facility] Last Admin: 11/16/17 09:45 Dose: Not Given Sodium Chloride (Ns Flush) 2 ml IV.FLUSH BID [facility] Last Admin: 11/16/17 09:46 Dose: Not Given Sodium Chloride (Ns Flush) 2 ml IV.FLUSH PRN PRN PRN Reason: FLUSH AFTER USING IV ACCESS Sodium Chloride (Ns Flush) 2 ml IV.FLUSH BID [facility] Sodium Chloride (Ns Flush) 2 ml IV.FLUSH PRN PRN PRN Reason: FLUSH AFTER USING IV ACCESS Witch Tish/Glycerin (Tucks Pads) 1 applicatio RECTAL QID PRN PRN Reason: HEMORRHOIDS Assessment and Plan - Diagnosis (1) Pre-eclampsia during in third trimester, antepartum Code(s): O14.93 - Unspecified pre-eclampsia, third trimester Status: Acute Plan: 32 YO with unknown gestational age due to no PNC presents with BP 170s/ 95 concerning for pre-eclampsia. Uncertain dates with L&P estimated at 39 weeks but bedside US indicates 35 weeks gestation. PLAN: -Admit for induction of labor -Mag sulfate IV for 24 hours per protocol -Labetalol IV titrate per protocol -Procardia 10 mg PO -Fentanyl 100mcg -Cervidil 10 mg per vagina -Potassium 2.9 on admit and 3.0 this morning --KCl 40 meq PO once --Re-check K+ in afternoon Pt DW Dr Hunter - Plan 32y/o female who is PPD#1 s/p IVD for pre-eclampsia. On magnesium, blood pressures overnight 154/106, 144/85. Otherwise asymptomatic today. Hypokalemic at 2.8 on 11/15, 3.0 on 11/16. -KCl PO -Start Procardia 30 XL PO -Continue routine care. -Percocet and Motrin PRN pain. -Encouraged OOB. Advised pelvic rest for 6 wks. -D/c in 1-[address] Landeros, Dr. Back
--- NOTE | 2017-11-18 09:17 | P.PNOB ---
Subjective Post day: 2 Interval history: Ms. Alexis had no acute events overnight but did have BP elevated to 140s-150s/88 -103. Pain is controlled taking p.o., voiding, stooling, and able to ambulate without dizziness. Patient's bleeding is decreased. Patient is breast and bottle feeding at this point. She feels her milk starting to come in. She plans to get her tubes tied at at her following 6 week visit. Denies chest pain, shortness of breath, N/V/D, DVT pain. She has no complaints this morning and would like to go home. Objective Vital Signs/I&O: Vital Signs 11/17/17 09:50 11/17/17 09:55 11/17/17 10:00 Temperature Pulse Rate 87 84 84 Respiratory Rate Blood Pressure 155/93 H 11/17/17 11:08 11/17/17 11:10 11/17/17 12:55 Temperature 98.1 F Pulse Rate 79 83 80 Respiratory Rate 16 18 Blood Pressure 161/97 H 140/91 H 11/17/17 17:05 11/17/17 20:00 11/17/17 20:37 Temperature 98.1 F Pulse Rate 74 75 70 Respiratory Rate 18 Blood Pressure 145/89 H 155/103 H 135/77 11/18/17 00:00 11/18/17 05:00 11/18/17 07:59 Temperature 98.3 F 98.1 F 98.5 F Pulse Rate 70 75 79 Respiratory Rate 17 17 18 Blood Pressure 156/94 H 144/88 H 149/97 H Intake & Output 11/17/17 11/18/17 11/18/17 18:59 06:59 18:59 Weight 89 kg Result Diagrams: 11/15/17 21:00 11/16/17 07:24 Objective Remarks: GENERAL: Well-nourished, well-developed patient. CARDIOVASCULAR: Regular rate and rhythm without murmurs, gallops, or rubs. RESPIRATORY: Breath sounds equal bilaterally. No accessory muscle use. ABDOMEN/GI: Abdomen soft, non-tender. Fundus: Firm, non-tender at umbilicus. GENITOURINARY: Light to moderate bleeding. EXTREMITIES: No cyanosis or edema, non-tender, without signs of DVT. Medications and IVs: Active Medications Acetaminophen (Tylenol) 650 mg PO Q4H PRN PRN Reason: PAIN SCALE 1 TO 2 Al Hydroxide/Mg Hydroxide (Milk Of Magnesia Liq) 30 ml PO Q12H PRN PRN Reason: Mild Constipation Benzocaine (Americaine 20% Top [place]) 1 spray TOPICAL Q4H PRN PRN Reason: For Perineum Discomfort Bisacodyl (Dulcolax Supp) 10 mg RECTAL DAILY PRN PRN Reason: SEVERE CONSITIPATION Calcium Gluconate (Calcium Gluconate Inj) 1 gm IV.PUSH PRN PRN PRN Reason: Magnesium toxicity Citric Acid/Sodium Citrate (Sodium Citrate/Citric Acid Liq) 30 ml PO [facility] Stop: 11/19/17 21:29 Fentanyl Citrate (Fentanyl Inj) 50 mcg IV.PUSH Q1H PRN PRN Reason: Pain Scale 3 - 5 Fentanyl Citrate (Fentanyl Inj) 100 mcg IV.PUSH Q1H PRN PRN Reason: PAIN SCALE 6 TO 10 Last Admin: 11/16/17 09:55 Dose: 100 mcg Hydralazine HCl (Apresoline Inj) 5 mg IV.PUSH NOW PRN PRN Reason: SEE LABEL COMMENTS Hydralazine HCl (Apresoline Inj) 10 mg IV.PUSH NOW PRN PRN Reason: SEE LABEL COMMENTS Lactated Ringer's (Lr 1000 Ml Inj) 1,000 mls @ 75 mls/hr IV.CONT .[id number] [facility] Last Admin: 11/17/17 08:11 Dose: 75 mls/hr Lactated Ringer's (Lr 1000 Ml Inj) 1,000 mls @ 125 mls/hr IV.CONT .Q8H [facility] Last Admin: 11/16/17 09:43 Dose: Not Given Lactated Ringer's (Lr 1000 Ml Inj) 1,000 mls @ 3,000 mls/hr IV.SIG UNSCH PRN PRN Reason: compromise or epidural Last Admin: 11/16/17 10:49 Dose: 3,000 mls/hr Magnesium Sulfate (Magnesium Sulfate/Water 40 Gm/1000 Ml Premix) 40 gm in 1, 000 mls @ 50 mls/hr IV.CONT Q24H [facility] Last Admin: 11/15/17 21:52 Dose: 2 gm/hr, 50 mls/hr Sodium Chloride (Ns Inj) 500 mls @ 1,000 mls/hr IV.SIG UNSCH PRN PRN Reason: SEE LABEL COMMENTS Sodium Chloride (Ns Inj) 1,000 mls @ 100 mls/hr IV.CONT .Q10H PRN PRN Reason: SEE LABEL COMMENTS Oxytocin (Pitocin 30 Units/Ns 500 Ml Premix) 30 units in 500 mls @ 2 mls/hr IV.SIG TITRATE PRN; Protocol PRN Reason: For induction of labor Fentanyl/Bupivacaine/Sodium Chlor (Fentanyl 2 Mcg-Bupiv 0.125% Epi) 150 mls @ 12 mls/hr EPIDURAL PRN PRN PRN Reason: for Labor Pain Last Admin: 11/16/17 10:41 Dose: 12 mls/hr Labetalol HCl (Trandate Inj) 80 mg IV.PUSH NOW PRN PRN Reason: SEE LABEL COMMENTS Lactulose (Lactulose Liq) 30 ml PO DAILY PRN PRN Reason: SEVERE CONSITIPATION Lidocaine HCl (Xylocaine 1% Inj) 0.1 ml I-DERMAL PRN PRN PRN Reason: For IV start Stop: 11/18/17 21:15 Mineral Oil (Muri-Lube Oil) 10 ml TOPICAL PRN PRN PRN Reason: PRN perineal massage Naloxone HCl (Narcan Inj) 0.1 mg IV.PUSH Q2M PRN PRN Reason: for opiate reversal Naloxone HCl (Narcan Inj) 0.1 mg IV.PUSH Q2M PRN PRN Reason: for opiate reversal Nifedipine (Procardia Xl) 30 mg PO DAILY [facility] Last Admin: 11/17/17 10:12 Dose: 30 mg Ondansetron HCl (Zofran Inj) 4 mg IV.PUSH Q6H PRN PRN Reason: NAUSEA OR VOMITING Ondansetron HCl (Zofran Odt) 4 mg PO Q6H PRN PRN Reason: NAUSEA OR VOMITING Senna/Docusate Sodium (Rosie-Colace) 1 tab PO BID [facility] Last Admin: 11/17/17 08:19 Dose: Not Given Sennosides (Senokot) 17.2 mg PO Q12H PRN PRN Reason: Moderate Constipation Sodium Chloride (Ns Flush) 2 ml IV.FLUSH PRN PRN PRN Reason: FLUSH AFTER USING IV ACCESS Sodium Chloride (Ns Flush) 2 ml IV.FLUSH BID [facility] Last Admin: 11/17/17 10:14 Dose: Not Given Sodium Chloride (Ns Flush) 2 ml IV.FLUSH BID [facility] Last Admin: 11/17/17 10:14 Dose: Not Given Sodium Chloride (Ns Flush) 2 ml IV.FLUSH PRN PRN PRN Reason: FLUSH AFTER USING IV ACCESS Sodium Chloride (Ns Flush) 2 ml IV.FLUSH BID [facility] Last Admin: 11/17/17 10:15 Dose: Not Given Sodium Chloride (Ns Flush) 2 ml IV.FLUSH PRN PRN PRN Reason: FLUSH AFTER USING IV ACCESS Witch Tish/Glycerin (Tucks Pads) 1 applicatio RECTAL QID PRN PRN Reason: HEMORRHOIDS Assessment and Plan - Diagnosis (1) Pre-eclampsia during in third trimester, antepartum Code(s): O14.93 - Unspecified pre-eclampsia, third trimester Status: Acute Plan: 32 YO with unknown gestational age due to no PNC presented with BP 170s/ 95 concerning for pre-eclampsia. Uncertain dates with L&P estimated at 39 weeks but bedside US indicates 35 weeks gestation. Pt is stable with the exception of elevated BPs in 140s-150s/88-103 overnight. Pt is asymptomatic; no VIEIRA, no visual disturbance. PLAN: 1. PPD#2 following IOL for pre-eclampsia -BP in 140s-150s/high 80s-103 overnight -Discharge on Procardia XL 30 mg PO daily -F/u with Dr Crouch in 1 week -Motrin and tylenol PRN for pain -Pt advised to shower only/no baths for 2 weeks -Pt advised pelvic rest for 6 weeks -Pt plans to get tubes tied following 6 week visit Dispo: plans to discharge today Pt JUAN Thomas and ALICJA Walker
[2017-11-18] MEDS: Senna/Docusate Sodium 8.6/50 MG Tablet PO SCH (09:20)
== END 2017-11-18 12:11 | disposition home or self-care (01) ==
LOC: HOBED 20:05 → H2E 21:14 → H1EA 11-17 11:46
PROVIDERS: ADMIT Obstetrics & Gynecology; ATTEND Obstetrics & Gynecology
DX: E87.6 Hypokalemia; O60.14X0 Preterm labor third trimester with preterm delivery third trimester, not applicable or unspecified; O14.14 Severe pre-eclampsia complicating childbirth; O99.284 Endocrine, nutritional and metabolic diseases complicating childbirth; Z3A.35 35 weeks gestation of pregnancy; Z37.0 Single live birth; O69.81X0 Labor and delivery complicated by cord around neck, without compression, not applicable or unspecified